=== PATIENT | female | born 1960 | race Caucasian/White ===

== ENCOUNTER 2018-10-03 13:36 | Emergency (ER) | payer OTHER ==
[~2018-10-03] VITALS: Ht 162.6 cm; Wt 86.2 kg
[~2018-10-03 13:36] MED LIST: ACYCLOVIR IV; ASPI81CH PO; ATOR10 PO; CIPR250 PO; CLOP75 PO; Cipro500 MG PO; Diovan40 MG PO; ESCI10 PO; FAMO20 PO; GLIP2.5ER PO; LEVO750 PO; LISI20 PO; METO25ER PO; MYCO250 PO; Macrodantin100 MG PO; PRED5 PO; Prednisone20 MG PO; Pyridium100 MG PO; TACR1 PO
== END 2018-10-03 14:20 | disposition home or self-care (01) ==
LOC: ER 13:36
DX: M25.571 Pain in right ankle and joints of right foot (principal); I25.2 Old myocardial infarction; E11.9 Type 2 diabetes mellitus without complications; I10 Essential (primary) hypertension; Z88.2 Allergy status to sulfonamides; Z91.040 Latex allergy status; Z88.8 Allergy status to other drugs, medicaments and biological substances; Z79.899 Other long term (current) drug therapy; Z79.52 Long term (current) use of systemic steroids; Z79.82 Long term (current) use of aspirin
CPT/HCPCS: 99282

== ENCOUNTER → 2019-01-09 | Outpatient (CLI) | payer OTHER ==
[2019-01-09 10:35] LABS: BASOPHILS ABSOLUTE AUTO 0.04 K/mm3 (0.00-0.23); BASOPHILS PERCENT AUTO 0 % (0-2); EOSINOPHILS ABSOLUTE AUTO 0.21 K/mm3 (0.00-0.68); EOSINOPHILS PERCENT AUTO 2 % (0-6); Hematocrit 36.5 % (33.0-51.0); Hemoglobin 11.5 g/dL (11.5-16.0); IMMATURE GRAN ABSOLUTE AUTO 0.02 K/mm3 (0.00-0.10); IMMATURE GRAN PERCENT AUTO 0 % (0-1); LYMPHOCYTES ABSOLUTE AUTO 2.49 K/mm3 (0.84-5.20); LYMPHOCYTES PERCENT AUTO 25 % (21-46); MONOCYTES ABSOLUTE AUTO 0.94 K/mm3 (0.16-1.47); MONOCYTES PERCENT AUTO 10 % (4-13); Mean Corpuscular HGB 27.9 pg (26.0-34.0); Mean Corpuscular HGB Conc 31.5 g/dL (31.5-36.5); Mean Corpuscular Volume 89 fL (80-100); Mean Platelet Volume 9.6 fL (9.1-12.4); NEUTROPHILS ABSOLUTE AUTO 6.23 K/mm3 (1.96-9.15); NEUTROPHILS PERCENT AUTO 63 % (41-73); Platelet Count 317 K/mm3 (150-400); RDW Coefficient Variation 12.7 % (11.7-14.2); RDW Standard Deviation 41.4 fL (35.1-46.3); Red Blood Cell Count 4.12 M/mm3 (3.80-5.20); White Blood Cell Count 9.93 K/mm3 (4.00-11.30)
[2019-01-09 10:49] LABS: Albumin, Blood 3.4 g/dL (3.4-5.0); Albumin/Globulin Ratio 0.8 (0.8-1.8); Bilirubin, Total 0.5 mg/dL (0.1-1.0); Bun/Creatinine Ratio 19.4 (12.0-20.0); Calcium, Blood 9.4 mg/dL (8.5-10.1); Creatinine, Blood 1.44 mg/dL (0.40-1.00); Potassium, Blood 4.1 mmol/L (3.5-5.5); Total Protein, Blood 7.4 g/dL (6.4-8.2)
== END | disposition home or self-care (01) ==
LOC: LAB 10:14 → LAB SHORT 10:14
PROVIDERS: Physician Assistant Surgical
DX: P59.9 Neonatal jaundice, unspecified (principal)
CPT/HCPCS: 80053; 85025

== ENCOUNTER 2019-06-11 07:58 | Inpatient (IN) | payer OTHER ==
[~2019-06-11] VITALS: Ht 162.6 cm; Wt 97.2 kg
[~2019-06-11 07:58] MED LIST changes: -ASPI81CH PO; +Aspirin EC81 MG PO; +Lopressor 25 mg25 MG PO; -METO25ER PO
[2019-06-11] MEDS ORDERED: GLIP2.5ER PO (08:27)
[2019-06-11 08:29] LABS: Source, Urine Clean Catch
[2019-06-11 08:34] LABS: Bilirubin, Urine Neg (Neg); Blood, Urine 3+ (Neg); Glucose Qualitative, Urine 1+ (Neg); Ketones, Urine Neg (Neg); Leukocyte Esterase, Urine 3+ (Neg); Nitrite, Urine Pos (Neg); Protein, Urine 3+ (Neg); Specific Gravity, Urine 1.015 (1.003-1.022); Urobilinogen, Urine NORM (Normal)
[2019-06-11 08:56] LABS: Appearance, Urine Cloudy (Clear); Color, Urine Yellow (P-Yellow)
[2019-06-11 08:57] LABS: White Blood Cells, Urine TNTC /hpf (0-5)
[2019-06-11 08:59] LABS: Bacteria Many /hpf; Squamous Epithelial Cells Few /hpf (Few); Transitional Epithelial Cells Rare /hpf (0-Rare)
[2019-06-11 09:26] LABS: BASOPHILS ABSOLUTE AUTO 0.01 K/mm3 (0.00-0.23); BASOPHILS PERCENT AUTO 0 % (0-2); EOSINOPHILS ABSOLUTE AUTO 0.01 K/mm3 (0.00-0.68); EOSINOPHILS PERCENT AUTO 0 % (0-6); Hematocrit 35.7 % (33.0-51.0); Hemoglobin 11.5 g/dL (11.5-16.0); IMMATURE GRAN ABSOLUTE AUTO 0.02 K/mm3 (0.00-0.10); IMMATURE GRAN PERCENT AUTO 0 % (0-1); LYMPHOCYTES ABSOLUTE AUTO 0.85 K/mm3 (0.84-5.20); LYMPHOCYTES PERCENT AUTO 11 % (21-46); MONOCYTES ABSOLUTE AUTO 0.92 K/mm3 (0.16-1.47); MONOCYTES PERCENT AUTO 12 % (4-13); Mean Corpuscular HGB 28.2 pg (26.0-34.0); Mean Corpuscular HGB Conc 32.2 g/dL (31.5-36.5); Mean Corpuscular Volume 88 fL (80-100); Mean Platelet Volume 9.5 fL (9.1-12.4); NEUTROPHILS ABSOLUTE AUTO 6.22 K/mm3 (1.96-9.15); NEUTROPHILS PERCENT AUTO 78 % (41-73); Platelet Count 228 K/mm3 (150-400); RDW Coefficient Variation 12.4 % (11.7-14.2); RDW Standard Deviation 39.8 fL (35.1-46.3); Red Blood Cell Count 4.08 M/mm3 (3.80-5.20); White Blood Cell Count 8.03 K/mm3 (4.00-11.30)
[2019-06-11 09:41] LABS: Albumin, Blood 2.8 g/dL (3.4-5.0); Albumin/Globulin Ratio 0.7 (0.8-1.8); Bilirubin, Total 0.4 mg/dL (0.1-1.0); Bun/Creatinine Ratio 21.1 (12.0-20.0); Calcium, Blood 8.6 mg/dL (8.5-10.1); Creatinine, Blood 1.14 mg/dL (0.40-1.00); Globulin, Blood 4.1 g/dL (2.2-4.0); Potassium, Blood 4.3 mmol/L (3.5-5.5); Total Protein, Blood 6.9 g/dL (6.4-8.2)
[2019-06-11 11:05] LABS: Adenovirus Not Detected (NOT DETECT); Bordetella pertussis Not Detected (NOT DETECT); Chlamydophila pneumoniae Not Detected (NOT DETECT); Coronavirus 229E Not Detected (NOT DETECT); Coronavirus HKU1 Not Detected (NOT DETECT); Coronavirus NL63 Not Detected (NOT DETECT); Coronavirus OC43 Not Detected (NOT DETECT); Human Metapneumovirus Not Detected (NOT DETECT); Human Rhinovirus/Enterovirus Not Detected (NOT DETECT); Influenza A Not Detected (NOT DETECT); Influenza A/2009-H1 Not Detected (NOT DETECT); Influenza A/H1 Not Detected (NOT DETECT); Influenza A/H3 Not Detected (NOT DETECT); Influenza B Not Detected (NOT DETECT); Mycoplasma pneumoniae Not Detected (NOT DETECT); Parainfluenza Virus 1 Not Detected (NOT DETECT); Parainfluenza Virus 2 Not Detected (NOT DETECT); Parainfluenza Virus 3 Not Detected (NOT DETECT); Parainfluenza Virus 4 Not Detected (NOT DETECT); Respiratory Syncytial Virus Not Detected (NOT DETECT)
[2019-06-11] MEDS ORDERED: LOSARTAN POTASS25 M2 PO (13:21)
--- NOTE | 2019-06-11 18:56 | NUR ---
SHIFT SUMMARY- PT NEW ADMIT THIS AFTERNOON. PT DENIES PAIN. DENIES N/V. DENIES SOB. RESP E/U ON RA. BLOOD SUGAR 325 THIS PM. MEDS GIVEN PER EMAR. INDEPENDENT IN THE ROOM. NO OTHER SIGNIFICANT CHANGES THIS SHIFT.
[2019-06-12 05:37] LABS: BASOPHILS ABSOLUTE AUTO 0.02 K/mm3 (0.00-0.23); BASOPHILS PERCENT AUTO 0 % (0-2); EOSINOPHILS ABSOLUTE AUTO 0.05 K/mm3 (0.00-0.68); EOSINOPHILS PERCENT AUTO 1 % (0-6); Hematocrit 37.1 % (33.0-51.0); IMMATURE GRAN ABSOLUTE AUTO 0.06 K/mm3 (0.00-0.10); IMMATURE GRAN PERCENT AUTO 1 % (0-1); LYMPHOCYTES PERCENT AUTO 21 % (21-46); MONOCYTES ABSOLUTE AUTO 0.75 K/mm3 (0.16-1.47); MONOCYTES PERCENT AUTO 12 % (4-13); Mean Corpuscular HGB 27.8 pg (26.0-34.0); Mean Corpuscular HGB Conc 32.3 g/dL (31.5-36.5); Mean Corpuscular Volume 86 fL (80-100); NEUTROPHILS ABSOLUTE AUTO 3.94 K/mm3 (1.96-9.15); NEUTROPHILS PERCENT AUTO 64 % (41-73); RDW Coefficient Variation 12.6 % (11.7-14.2); RDW Standard Deviation 39.1 fL (35.1-46.3); Red Blood Cell Count 4.31 M/mm3 (3.80-5.20); White Blood Cell Count 6.12 K/mm3 (4.00-11.30)
[2019-06-12 05:39] LABS: Mean Platelet Volume 10.4 fL (9.1-12.4); Platelet Count 200 K/mm3 (150-400)
[2019-06-12 06:01] LABS: Bun/Creatinine Ratio 19.2 (12.0-20.0); Calcium, Blood 8.8 mg/dL (8.5-10.1); Creatinine, Blood 1.04 mg/dL (0.40-1.00); Potassium, Blood 4.2 mmol/L (3.5-5.5)
--- NOTE | 2019-06-12 06:19 | NUR ---
SHIFT SUMMARY PT A/O INDEPENDENT. DENIED PAIN. NO SYMPTOMS FROM UTI. SHE WAS ABLE TO SLEEP T/O NIGHT. CALL LIGHT IN REACH.
--- NOTE | 2019-06-12 17:37 | NUR ---
SHIFT SUMMARY PT AXO, PLEASANT AND COOPERATIVE WITH CARE THOUGH ANXIOUS ABOUT MISSING WORK. PT'S EMPLOYER TO FAX PAPERWORK TO NURSE STATION VIA FAX TO EXCUSE HER ABSENCE FROM WORK. CHARGE NURSE NOTIFIED. VSS. NEW IV THIS SHIFT PATENT AND INFUSING AT THIS TIME. PT RESTING AT THIS TIME, BED IN LOW POSITION, CALL LIGHT WITHIN REACH. PT DENIES SOB AND NV. NO ACUTE CHANGES THIS SHIFT.
--- NOTE | 2019-06-13 06:30 | NUR ---
SHIFT SUMMARY PATIENT IS ALERT AND ORIENTED. UP IN ROOM INDEPENDENTLY. PATIENT REPORTS SHE IS EXPECTING PAPERWORK FROM [employer] TO BE FAXED OVER. NOTIFIED MORTGAGE LOAN PROCESSOR. NO PAPERS HAVE BEEN FAXED YET. PATIENT SLEPT WELL. VITALS STABLE. NO NEW CHANGES NOTED.
--- NOTE | 2019-06-13 17:21 | NUR ---
SHIFT SUMMARY NO ACUTE CHANGES. PATIENT DENIES PAIN, NAUSEA, AND SHORTNESS OF BREATH. PATIENT INDEPENDENT IN ROOM. DISCHARGE LIKELY TOMORROW. CALL LIGHT IN REACH, WILL CONTINUE TO MONITOR.
[2019-06-14 04:54] LABS: BASOPHILS ABSOLUTE AUTO 0.02 K/mm3 (0.00-0.23); BASOPHILS PERCENT AUTO 0 % (0-2); EOSINOPHILS ABSOLUTE AUTO 0.14 K/mm3 (0.00-0.68); EOSINOPHILS PERCENT AUTO 2 % (0-6); Hematocrit 36.5 % (33.0-51.0); Hemoglobin 11.5 g/dL (11.5-16.0); IMMATURE GRAN ABSOLUTE AUTO 0.01 K/mm3 (0.00-0.10); IMMATURE GRAN PERCENT AUTO 0 % (0-1); LYMPHOCYTES ABSOLUTE AUTO 2.26 K/mm3 (0.84-5.20); LYMPHOCYTES PERCENT AUTO 32 % (21-46); MONOCYTES ABSOLUTE AUTO 0.66 K/mm3 (0.16-1.47); MONOCYTES PERCENT AUTO 9 % (4-13); Mean Corpuscular HGB 27.7 pg (26.0-34.0); Mean Corpuscular HGB Conc 31.5 g/dL (31.5-36.5); Mean Corpuscular Volume 88 fL (80-100); Mean Platelet Volume 9.4 fL (9.1-12.4); NEUTROPHILS ABSOLUTE AUTO 4.03 K/mm3 (1.96-9.15); NEUTROPHILS PERCENT AUTO 57 % (41-73); Platelet Count 292 K/mm3 (150-400); RDW Coefficient Variation 12.6 % (11.7-14.2); RDW Standard Deviation 40.5 fL (35.1-46.3); Red Blood Cell Count 4.15 M/mm3 (3.80-5.20); White Blood Cell Count 7.12 K/mm3 (4.00-11.30)
[2019-06-14 05:19] LABS: Bun/Creatinine Ratio 27.9 (12.0-20.0); Calcium, Blood 9.1 mg/dL (8.5-10.1); Creatinine, Blood 1.22 mg/dL (0.40-1.00); Potassium, Blood 4.7 mmol/L (3.5-5.5)
--- NOTE | 2019-06-14 05:54 | NUR ---
SHIFT SUMMARY PATIENT IS ALERT AND ORIENTED. ON ROOM AIR. SLEPT WELL THROUGHOUT THE NIGHT. UP IN ROOM INDEPENDENTLY. NO NEW CHANGES. VITALS STABLE.
[2019-06-14] MEDS ORDERED: CLOT10 MT (11:55)
[2019-06-14] MEDS ORDERED: DOXY100 PO (11:56)
--- NOTE | 2019-06-14 12:31 | NUR ---
DISCHARGE DISCHARGE MEDICATIONS AND INSTRUCTIONS EXPLAINED TO PATIENT AND PATIENT'S DAUGHTER. THEY STATED UNDERSTANDING. IV REMOVED WITHOUT DIFFICULTY. BELONGINGS WITH PATIENT. PATIENT AMBULATED TO PRIVATE VEHICLE WITH DAUGHTER.
== END 2019-06-14 12:22 | disposition home or self-care (01) | DRG 690 ==
LOC: ER 07:58 → ERHOLD 10:41 → MEDS 14:23 → ENPENDDIS 06-14 11:41 → MEDS 06-14 12:22
PROVIDERS: Emergency Medicine; Hospitalist; ADMIT Internal Medicine
DX: N39.0 Urinary tract infection, site not specified (principal); Z94.0 Kidney transplant status; B96.20 Unspecified Escherichia coli [E. coli] as the cause of diseases classified elsewhere; Z16.12 Extended spectrum beta lactamase (ESBL) resistance; N18.2 Chronic kidney disease, stage 2 (mild); E11.22 Type 2 diabetes mellitus with diabetic chronic kidney disease; I12.9 Hypertensive chronic kidney disease with stage 1 through stage 4 chronic kidney disease, or unspecified chronic kidney disease; M32.9 Systemic lupus erythematosus, unspecified; E06.3 Autoimmune thyroiditis; D89.9 Disorder involving the immune mechanism, unspecified; I25.2 Old myocardial infarction; Z88.2 Allergy status to sulfonamides; Z91.040 Latex allergy status; Z79.84 Long term (current) use of oral hypoglycemic drugs; Z79.82 Long term (current) use of aspirin; Z79.899 Other long term (current) drug therapy
CPT/HCPCS: 0099U; 36415; 71046; 80048; 80053; 81001; 82947; 83605; 85025; 87040; 87077; 87086; 87186; 93005; 93010; 96361; 96365; 96375; 99285-25; A9270; J1650; J2185; J2543; J7030; J7050; J7120; J7507; J7512; J7517

== ENCOUNTER 2019-07-22 11:59 | Inpatient (IN) | payer OTHER ==
[~2019-07-22] VITALS: Ht 162.6 cm; Wt 99.6 kg
[~2019-07-22 11:59] MED LIST changes: +CLOT10 MT; +DOXY100 PO; +LOSARTAN POTASS25 M2 PO
[2019-07-22 12:23] LABS: BASOPHILS ABSOLUTE AUTO 0.02 K/mm3 (0.00-0.23); BASOPHILS PERCENT AUTO 0 % (0-2); EOSINOPHILS ABSOLUTE AUTO 0.01 K/mm3 (0.00-0.68); EOSINOPHILS PERCENT AUTO 0 % (0-6); Hematocrit 37.2 % (33.0-51.0); Hemoglobin 11.9 g/dL (11.5-16.0); IMMATURE GRAN ABSOLUTE AUTO 0.06 K/mm3 (0.00-0.10); IMMATURE GRAN PERCENT AUTO 0 % (0-1); LYMPHOCYTES ABSOLUTE AUTO 1.13 K/mm3 (0.84-5.20); LYMPHOCYTES PERCENT AUTO 7 % (21-46); MONOCYTES ABSOLUTE AUTO 1.71 K/mm3 (0.16-1.47); MONOCYTES PERCENT AUTO 11 % (4-13); Mean Corpuscular HGB 28.5 pg (26.0-34.0); Mean Corpuscular Volume 89 fL (80-100); Mean Platelet Volume 9.7 fL (9.1-12.4); NEUTROPHILS ABSOLUTE AUTO 12.51 K/mm3 (1.96-9.15); NEUTROPHILS PERCENT AUTO 81 % (41-73); Platelet Count 282 K/mm3 (150-400); RDW Coefficient Variation 12.6 % (11.7-14.2); RDW Standard Deviation 41.1 fL (35.1-46.3); Red Blood Cell Count 4.18 M/mm3 (3.80-5.20); White Blood Cell Count 15.44 K/mm3 (4.00-11.30)
[2019-07-22 12:28] LABS: Source, Urine Clean Catch
[2019-07-22 12:33] LABS: Appearance, Urine Cloudy (Clear); Bilirubin, Urine Neg (Neg); Blood, Urine 4+ (Neg); Color, Urine Yellow (P-Yellow); Glucose Qualitative, Urine 1+ (Neg); Ketones, Urine Neg (Neg); Leukocyte Esterase, Urine 3+ (Neg); Nitrite, Urine Pos (Neg); Protein, Urine 3+ (Neg); Specific Gravity, Urine 1.015 (1.003-1.022); Urobilinogen, Urine NORM (Normal)
[2019-07-22 12:39] LABS: Albumin, Blood 2.8 g/dL (3.4-5.0); Albumin/Globulin Ratio 0.6 (0.8-1.8); Bilirubin, Total 0.6 mg/dL (0.1-1.0); Bun/Creatinine Ratio 21.1 (12.0-20.0); Calcium, Blood 8.8 mg/dL (8.5-10.1); Creatinine, Blood 1.33 mg/dL (0.40-1.00); Globulin, Blood 4.4 g/dL (2.2-4.0); Potassium, Blood 4.1 mmol/L (3.5-5.5); Total Protein, Blood 7.2 g/dL (6.4-8.2)
[2019-07-22 13:30] LABS: White Blood Cells, Urine 50-100 /hpf (0-5)
[2019-07-22 13:32] LABS: Bacteria Many /hpf; Squamous Epithelial Cells Mod /hpf (Few); Transitional Epithelial Cells Few /hpf ({null, 0-Rare})
--- NOTE | 2019-07-22 19:27 | NUR ---
END OF SHIFT. PT ARRIVED TO PCU LATE IN AFTERNOON FROM ER. SHE IS AO X 4 ON ARRIVAL. IV FLUIDS INFUSING AT SEPSIS PROTOCOL RATE. COMES TO SEE PATIENT AND NEWE ORDERS RECEIVED FOR ULTRASOUND. PT IS CURRENTLY RESTING COMFORTABLY LIGHTS LOW. BREATHING EVEN AND UNLABORED. HAS HAD NO EPISODES OF N/V/D SINCE ARRIVAL TO UNIT. PER REPORT PT HAD 3 DAYS OF N/V/D PRIOR TO COMING TO ER. SHE RECEIVED ONE LITER LR IN ER AND MEDICATION FOR HER HEADACHE. PT IS A SBA TO THE BATHROOM AND IS COOPERATIVE WITH CARE. USING CALL LIGHT APPROPRIATELY.
[2019-07-23 03:59] LABS: BASOPHILS ABSOLUTE AUTO 0.01 K/mm3 (0.00-0.23); BASOPHILS PERCENT AUTO 0 % (0-2); EOSINOPHILS ABSOLUTE AUTO 0.01 K/mm3 (0.00-0.68); EOSINOPHILS PERCENT AUTO 0 % (0-6); Hemoglobin 9.6 g/dL (11.5-16.0); IMMATURE GRAN ABSOLUTE AUTO 0.03 K/mm3 (0.00-0.10); IMMATURE GRAN PERCENT AUTO 0 % (0-1); LYMPHOCYTES ABSOLUTE AUTO 0.91 K/mm3 (0.84-5.20); LYMPHOCYTES PERCENT AUTO 8 % (21-46); MONOCYTES ABSOLUTE AUTO 1.39 K/mm3 (0.16-1.47); MONOCYTES PERCENT AUTO 13 % (4-13); Mean Corpuscular HGB 28.9 pg (26.0-34.0); Mean Corpuscular Volume 90 fL (80-100); Mean Platelet Volume 9.9 fL (9.1-12.4); NEUTROPHILS ABSOLUTE AUTO 8.43 K/mm3 (1.96-9.15); NEUTROPHILS PERCENT AUTO 78 % (41-73); Platelet Count 221 K/mm3 (150-400); RDW Coefficient Variation 12.8 % (11.7-14.2); RDW Standard Deviation 42.3 fL (35.1-46.3); Red Blood Cell Count 3.32 M/mm3 (3.80-5.20); White Blood Cell Count 10.78 K/mm3 (4.00-11.30)
[2019-07-23 04:20] LABS: Magnesium, Blood 1.3 mg/dL (1.6-2.4)
[2019-07-23 04:21] LABS: Albumin, Blood 2.1 g/dL (3.4-5.0); Albumin/Globulin Ratio 0.6 (0.8-1.8); Bilirubin, Total 0.5 mg/dL (0.1-1.0); Bun/Creatinine Ratio 15.8 (12.0-20.0); Calcium, Blood 7.9 mg/dL (8.5-10.1); Creatinine, Blood 1.33 mg/dL (0.40-1.00); Globulin, Blood 3.5 g/dL (2.2-4.0); Phosphorus, Blood 2.6 mg/dL (2.5-4.9); Potassium, Blood 3.8 mmol/L (3.5-5.5); Total Protein, Blood 5.6 g/dL (6.4-8.2)
--- NOTE | 2019-07-23 05:50 | NUR ---
END OF SHIFT SUMMARY PT HAS BEEN ALERT AND ORIENTED T/O SHIFT. PLEASANT. VSS. PT HAS HAD MADE MULTIPLE TRIPS TO BATHRROM OR [facility] TO VOID. BEGINNING OF SHIFT, WHILE RECEIVING SEPSIS FLUID BOLUS, PT WAS INCONTINENT IN BRIEFS DUE TO INABILITY TO GET TO BATHRROM QUICK ENOUGH. BRIEFS WERE FULLY SOAKED BOTH TIMES. PT HAS HAD A LOW GRADE FEVER OFF AND ON T/O THE NIGHT. ALTERNATING WITH BLANKETS FOR PT. PT STATES THAT SHE IS FEELING BETTER THAN AT THE BEGINNING OF SHIFT. USES CALL LIGHT APPROPRIATELY. WILL CONTINUE TO MONITOR PT UNTIL SHIFT CHANGE.
--- NOTE | 2019-07-23 07:20 | NUR ---
ASSUMED CARE: PT SITTING UPRIGHT AT SIDE OF BED, TALKING TO STAFF, INDEPENDENT IN ROOM. NO ACUTE NEEDS OR CONCERNS NOTED
--- NOTE | 2019-07-23 09:57 | NUR ---
ISTRATE AWARE THAT PT HAS ELEVATED TEMP THIS AM. PT MED NO TELE STATUS NOW. PT AWARE
--- NOTE | 2019-07-23 19:19 | NUR ---
SHIFT SUMMARY: PT MEDICAL STATUS, RESTING QUIETLY T/O SHIFT. TEMP NORMALIZED BY END OF SHIFT. NO ACUTE NEEDS OR CONCERNS.
--- NOTE | 2019-07-24 05:34 | NUR ---
END OF SHIFT SUMMARY NO ACUTE CHANGES THIS SHIFT. VSS. PT STATES FEELING STRONGER THIS SHIFT THAN LAST. PT AFEBRILE FOR ENTIREITY OF SHIFT. HAS VOIDED MULTIPLE TIMES. UNABLE TO OBTAQIN URINE OR STOOL SAMPLE DUE TO PT'S INABILITY TO NOT VOID/HAVE BM AT THE SAME TIME. WILL CONTINUE TO TRY AND OBTAIN THIS. PT HAS REQUIRED LITTLE FROM STAFF. HAS BEEN RESTING IN ROOM QUIETLY. USES CALL LIGHT APPROPRIATELY. CURRENTLY, LAB UNABLE TO PULL BLOOD FROM PT AND HAVE BEEN UNSUCCESFUL MULTIPLE ATTEMPTS. OTHERWISE, WILL CONTINUE TO MONITOPR PT UNTIL SHIFT CHANGE.
[2019-07-24 06:03] LABS: Albumin, Blood 2.1 g/dL (3.4-5.0); Anion Gap 8 mmol/L (6-16); Blood Urea Nitrogen 23 mg/dL (8-24); Bun/Creatinine Ratio 18.7 (12.0-20.0); CO2, Blood 20 mmol/L (21-32); Calcium, Blood 8.2 mg/dL (8.5-10.1); Chloride, Blood 109 mmol/L (98-108); Creatinine, Blood 1.23 mg/dL (0.40-1.00); Glomerular Filtration Rate 48 (60-); Glucose, Blood 147 mg/dL (70-99); Phosphorus, Blood 1.8 mg/dL (2.5-4.9); Potassium, Blood 3.8 mmol/L (3.5-5.5); Sodium, Blood 137 mmol/L (136-145)
[2019-07-24 06:55] LABS: BASOPHILS ABSOLUTE AUTO 0.02 K/mm3 (0.00-0.23); BASOPHILS PERCENT AUTO 0 % (0-2); EOSINOPHILS ABSOLUTE AUTO 0.08 K/mm3 (0.00-0.68); EOSINOPHILS PERCENT AUTO 1 % (0-6); Hematocrit 32.3 % (33.0-51.0); Hemoglobin 10.3 g/dL (11.5-16.0); IMMATURE GRAN ABSOLUTE AUTO 0.02 K/mm3 (0.00-0.10); IMMATURE GRAN PERCENT AUTO 0 % (0-1); LYMPHOCYTES ABSOLUTE AUTO 1.45 K/mm3 (0.84-5.20); LYMPHOCYTES PERCENT AUTO 18 % (21-46); MONOCYTES ABSOLUTE AUTO 0.77 K/mm3 (0.16-1.47); MONOCYTES PERCENT AUTO 9 % (4-13); Mean Corpuscular HGB 28.7 pg (26.0-34.0); Mean Corpuscular HGB Conc 31.9 g/dL (31.5-36.5); Mean Corpuscular Volume 90 fL (80-100); Mean Platelet Volume 9.8 fL (9.1-12.4); NEUTROPHILS ABSOLUTE AUTO 5.82 K/mm3 (1.96-9.15); NEUTROPHILS PERCENT AUTO 71 % (41-73); Platelet Count 237 K/mm3 (150-400); RDW Standard Deviation 42.6 fL (35.1-46.3); Red Blood Cell Count 3.59 M/mm3 (3.80-5.20); White Blood Cell Count 8.16 K/mm3 (4.00-11.30)
--- NOTE | 2019-07-24 07:25 | NUR ---
ASSUMED CARE: PT RESTING QUIETLY IN BED. CALL TO MULTIPLE NURSES TO ATTEMPT POWER GLIDE FOR LABS. AWAITING THEIR AVAILABILITY. NO ACUTE NEEDS OR CONCERNS AT THIS TIME.
[2019-07-24] MEDS ORDERED: ACET325 PO (11:34)
[2019-07-24] MEDS ORDERED: NITR100CA PO (11:35)
[2019-07-24] MEDS ORDERED: HUMALOG KW200 UNIT/1 (11:35)
[2019-07-24] MEDS ORDERED: DIGESTIVE PROB250 MG PO (11:36)
[2019-07-24] MEDS ORDERED: ONDA4ODT MM (11:36)
--- NOTE | 2019-07-24 13:25 | NUR ---
DIETARY HAD AN EXTENSIVE CONVERSATION WITH PT REGARDING RENAL AND DIABETIC DIETS. DISCUSSED WITH PT THE USE OF AN INSULIN PEN AND HAD HER DEMONSTRATE AND REPEAT BACK. IV'S DC'D WNL. DR MIMS STATED, AND THIS WAS RELAYED TO PT, THAT DR CASTILLO WOULD DETERMINE IF SHE NEEDED A CONSULT FOR DR COX AN OUTPT. INSTRUCTED PT TO FOLLOW UP WITH DR CASTILLO AND THAT DISCHARGE PLANNING WAS WORKING ON GETTING PT A PCP. AMBULATORY AND DECLINED WHEEL CHAIR. DECLINED OTHER NEEDS OR CONCERNS.
--- NOTE | 2019-07-24 13:35 | NUR ---
PT AMBULATED SELF OUT FOR DISCHARGE. DECLINED THE NEED OF A WHEELCHAIR.
[2019-07-25 16:07] LABS: CMV QUANT DNA PCR (PLASMA) Negative (Negative)
== END 2019-07-24 13:27 | disposition home or self-care (01) | DRG 871 ==
LOC: ER 11:59 → PCU 15:07
PROVIDERS: Emergency Medicine; Internal Medicine Nephrology; ADMIT Family Medicine
DX: A41.51 Sepsis due to Escherichia coli [E. coli] (principal); N18.6 End stage renal disease; N39.0 Urinary tract infection, site not specified; E87.1 Hypo-osmolality and hyponatremia; Z94.0 Kidney transplant status; E87.2 Acidosis; N17.9 Acute kidney failure, unspecified; N25.81 Secondary hyperparathyroidism of renal origin; I12.0 Hypertensive chronic kidney disease with stage 5 chronic kidney disease or end stage renal disease; F41.8 Other specified anxiety disorders; E78.5 Hyperlipidemia, unspecified; E11.22 Type 2 diabetes mellitus with diabetic chronic kidney disease; M32.9 Systemic lupus erythematosus, unspecified; E86.9 Volume depletion, unspecified; D63.1 Anemia in chronic kidney disease; E83.39 Other disorders of phosphorus metabolism; D89.9 Disorder involving the immune mechanism, unspecified; E66.9 Obesity, unspecified; Z68.32 Body mass index [BMI] 32.0-32.9, adult; Z91.040 Latex allergy status; Z88.2 Allergy status to sulfonamides; Z79.82 Long term (current) use of aspirin; Z79.52 Long term (current) use of systemic steroids; Z79.899 Other long term (current) drug therapy
CPT/HCPCS: 36415; 71046; 76770; 80053; 80069; 80197; 81001; 82947; 83605; 83690; 83735; 84100; 85025; 86644; 86645; 87040; 87077; 87086; 87186; 87496; 87497; 96361; 96365; 96375; 99285-25; A9270; C1751; J0696; J0881; J1650; J2185; J2405; J3475; J7030; J7060; J7120; J7507; J7512; J7517

== ENCOUNTER → 2021-06-06 | Outpatient (CLI) | payer OTHER ==
[~2021-06-06] MED LIST changes: +ACET325 PO; +DIGESTIVE PROB250 MG PO; +HUMALOG KW200 UNIT/1; +NITR100CA PO; +ONDA4ODT MM
== END | disposition home or self-care (01) ==
LOC: LAB SHORT 12:00 → LAB 12:00
DX: N39.0 Urinary tract infection, site not specified (principal)
CPT/HCPCS: 87086; 87147

== ENCOUNTER → 2022-05-12 | Outpatient (CLI) | payer SELFPAY ==
[~2022-05-12] MED LIST changes: +Amoxicillin500 MG PO; +INSULIN GL100 UNIT/2 SC
== END | disposition home or self-care (01) ==
LOC: LAB SHORT 12:00 → LAB 12:00
DX: N39.0 Urinary tract infection, site not specified (principal)
CPT/HCPCS: 87086; 87147

== ENCOUNTER 2022-05-19 15:39 | Observation (INO) | payer OTHER ==
[~2022-05-19] VITALS: Ht 162.6 cm; Wt 81.7 kg
[~2022-05-19 15:39] MED LIST changes: -Amoxicillin500 MG PO; -INSULIN GL100 UNIT/2 SC
[2022-05-19 17:04] LABS: BASOPHILS ABSOLUTE AUTO 0.03 K/mm3 (0.00-0.23); BASOPHILS PERCENT AUTO 0 % (0-2); EOSINOPHILS ABSOLUTE AUTO 0.03 K/mm3 (0.00-0.68); EOSINOPHILS PERCENT AUTO 0 % (0-6); Hematocrit 38.9 % (33.0-51.0); Hemoglobin 12.8 g/dL (11.5-16.0); IMMATURE GRAN ABSOLUTE AUTO 0.09 K/mm3 (0.00-0.10); IMMATURE GRAN PERCENT AUTO 1 % (0-1); LYMPHOCYTES ABSOLUTE AUTO 0.89 K/mm3 (0.84-5.20); LYMPHOCYTES PERCENT AUTO 8 % (21-46); MONOCYTES ABSOLUTE AUTO 0.43 K/mm3 (0.16-1.47); MONOCYTES PERCENT AUTO 4 % (4-13); Mean Corpuscular HGB 28.3 pg (26.0-34.0); Mean Corpuscular HGB Conc 32.9 g/dL (31.5-36.5); Mean Corpuscular Volume 86 fL (80-100); Mean Platelet Volume 9.6 fL (9.1-12.4); NEUTROPHILS ABSOLUTE AUTO 10.23 K/mm3 (1.96-9.15); NEUTROPHILS PERCENT AUTO 87 % (41-73); Platelet Count 402 K/mm3 (150-400); RDW Coefficient Variation 12.5 % (11.7-14.2); Red Blood Cell Count 4.53 M/mm3 (3.80-5.20)
[2022-05-19 17:25] LABS: Ethanol (Alcohol), Blood, Med <3 mg/dL
[2022-05-19 17:29] LABS: Alanine Aminotransfer (ALT/SGP 19 U/L (12-78); Albumin, Blood 2.6 g/dL (3.4-5.0); Albumin/Globulin Ratio 0.6 (0.8-1.8); Alk Phos 185 U/L (50-136); Anion Gap 8 mmol/L (6-16); Aspartate Aminotrans (AST/SGOT 9 U/L (12-37); Bilirubin, Total 0.3 mg/dL (0.1-1.0); Blood Urea Nitrogen 28 mg/dL (8-24); CO2, Blood 22 mmol/L (21-32); Calcium, Blood 9.3 mg/dL (8.5-10.1); Chloride, Blood 94 mmol/L (98-108); Creatinine, Blood 1.22 mg/dL (0.40-1.00); Globulin, Blood 4.3 g/dL (2.2-4.0); Glomerular Filtration Rate 51 (60-); Glucose, Blood 870 mg/dL (70-99); Potassium, Blood 4.3 mmol/L (3.5-5.5); Sodium, Blood 124 mmol/L (136-145); Total Protein, Blood 6.9 g/dL (6.4-8.2)
[2022-05-19 18:08] LABS: Base Excess Venous -5.3 mmol/L; Bicarbonate Venous 20.1 mmol/L (24.0-30.0); PCO2 Venous 43.7 mmHg (38-42); pH Blood Venous 7.29 (7.34-7.37)
[2022-05-19 18:42] LABS: U Amphetamine Screen Not Detected; U Barbituate Screen Not Detected; U Benzodiazapine Screen Not Detected; U Buprenorphine Screen Not Detected; U Cannabinoids Screen Not Detected; U Cocaine Screen Not Detected; U Methadone Screen Not Detected; U Methamphetamine Screen Not Detected; U Opiates Screen Not Detected; U Oxycodone Screen Not Detected; U Phencyclidine Screen Not Detected; U Propoxyphene Screen Not Detected
[2022-05-19 21:04] LABS: Influenza A, PCR NEGATIVE (NEGATIVE); Influenza B, PCR NEGATIVE (NEGATIVE); Resp Syncytial Virus, PCR NEGATIVE (NEGATIVE); SARS-Cov-2 (COVID-19) PCR, MMC NEGATIVE (NEGATIVE)
[2022-05-19 21:20] LABS: Source, Urine Clean Catch
[2022-05-19 21:31] LABS: Appearance, Urine Clear (Clear); Bilirubin, Urine Neg (Neg); Blood, Urine 1+ (Neg); Glucose Qualitative, Urine 4+ (Neg); Ketones, Urine Neg (Neg); Leukocyte Esterase, Urine Neg (Neg); Nitrite, Urine Neg (Neg); Protein, Urine 3+ (Neg); Urobilinogen, Urine NORM (Normal)
[2022-05-19 21:42] LABS: Color, Urine Pale Yellow (P-Yellow)
[2022-05-19 21:43] LABS: Hyaline Casts 0-2 /lpf (0-2)
[2022-05-19 21:44] LABS: Bacteria Mod /hpf; Red Blood Cells, Urine 0-2 /hpf (0-2); Squamous Epithelial Cells Rare /hpf (Few); White Blood Cells, Urine 0-2 /hpf (0-5)
[2022-05-20 07:29] LABS: Bun/Creatinine Ratio 18.3 (12.0-20.0); Calcium, Blood 9.1 mg/dL (8.5-10.1); Creatinine, Blood 1.04 mg/dL (0.40-1.00); Potassium, Blood 3.8 mmol/L (3.5-5.5)
--- NOTE | 2022-05-20 14:25 | NUR ---
PT ADMITTED TO ROOM [id number], A/O X4, SLID SELF FROM STRETCHER TO BED WITHOUT DIFFICULTY. ORIENTED TO ROOM SET UP AND SAFETY. INSTRUCTED TO USE CALL LIGHT TO GET UP FOR NOW UNTIL SHE REGAINS STRENGTH.
[2022-05-20] MEDS ORDERED: Amoxicillin500 MG PO (18:25)
[2022-05-20] MEDS ORDERED: INSULIN GL100 UNIT/2 SC (18:28)
--- NOTE | 2022-05-20 18:50 | NUR ---
PT DISCHARGED 1829 WITH DC INSTRUCTIONS. RX FAXED TO [facility]. SUGARS STABLE. INSTRUCTIONS GIVEN ON DIABETIC TEACHING AND NEVER QUITTING INSULIN COLD . WALKED OUT WITH DAUGHTER, REFUSED WHEELCHAIR
== END 2022-05-20 18:47 | disposition home or self-care (01) ==
LOC: ER 15:39 → ERHOLD 15:40 → BC 15:40 → ERHOLD 15:40 → ER 15:40 → ERHOLD 15:41 → MEDS 05-20 13:52
PROVIDERS: Emergency Medicine; Physician Assistant; ADMIT Internal Medicine
DX: E11.65 Type 2 diabetes mellitus with hyperglycemia (principal); G92.8 Other toxic encephalopathy; N39.0 Urinary tract infection, site not specified; I12.9 Hypertensive chronic kidney disease with stage 1 through stage 4 chronic kidney disease, or unspecified chronic kidney disease; N18.9 Chronic kidney disease, unspecified; E11.22 Type 2 diabetes mellitus with diabetic chronic kidney disease; I25.2 Old myocardial infarction; E78.5 Hyperlipidemia, unspecified; Z88.2 Allergy status to sulfonamides; Z79.84 Long term (current) use of oral hypoglycemic drugs; Z79.899 Other long term (current) drug therapy
CPT/HCPCS: 0241U; 36415; 70450; 71045; 80048; 80053; 80197; 81001; 82140; 82803; 82947; 84484; 85025; 87086; 93005; 93010; 96361; 96372; 96374; 99285-25; A9270; G0378; G0480; J1650; J1815; J7030

== ENCOUNTER → 2022-07-23 | Outpatient (CLI) | payer OTHER ==
[~2022-07-23] MED LIST changes: +Amoxicillin500 MG PO; +INSULIN GL100 UNIT/2 SC
== END | disposition home or self-care (01) ==
LOC: LAB SHORT 11:50
DX: E11.65 Type 2 diabetes mellitus with hyperglycemia (principal); Z79.4 Long term (current) use of insulin
CPT/HCPCS: 82043

== ENCOUNTER 2022-09-09 10:51 | Emergency (ER) | payer OTHER ==
[~2022-09-09] VITALS: Ht 167.6 cm; Wt 65.8 kg
== END 2022-09-09 16:55 | disposition home or self-care (01) ==
LOC: ER 10:51
DX: T38.3X1A Poisoning by insulin and oral hypoglycemic [antidiabetic] drugs, accidental (unintentional), initial encounter (principal); I25.2 Old myocardial infarction; I12.9 Hypertensive chronic kidney disease with stage 1 through stage 4 chronic kidney disease, or unspecified chronic kidney disease; N18.9 Chronic kidney disease, unspecified; E11.22 Type 2 diabetes mellitus with diabetic chronic kidney disease; Z88.2 Allergy status to sulfonamides; Z91.040 Latex allergy status; Z79.52 Long term (current) use of systemic steroids; Z79.899 Other long term (current) drug therapy; Z79.4 Long term (current) use of insulin; Z94.0 Kidney transplant status
CPT/HCPCS: 36415; 82947; 96374; 96376; 99284-25

== ENCOUNTER → 2024-01-19 | Outpatient (CLI) | payer OTHER | END | disposition home or self-care (01) | LOC: LAB SHORT 16:50 → LAB 16:50 | DX: N39.0 Urinary tract infection, site not specified (principal) | CPT/HCPCS: 87077; 87086; 87186 ==

== ENCOUNTER 2024-09-28 13:20 | Emergency (ER) | payer OTHER ==
[~2024-09-28] VITALS: Ht 162.6 cm; Wt 86.2 kg
[2024-09-28 13:37] VITALS: BP 205/80
[2024-09-28] MEDS ORDERED: CELE100 PO (15:31)
[2024-09-28] MEDS ORDERED: ALLEGRA ALLERGY60 MG PO (15:31)
== END 2024-09-28 15:39 | disposition home or self-care (01) ==
LOC: ER 13:20
DX: H65.91 Unspecified nonsuppurative otitis media, right ear (principal); I25.2 Old myocardial infarction; E11.22 Type 2 diabetes mellitus with diabetic chronic kidney disease; I12.9 Hypertensive chronic kidney disease with stage 1 through stage 4 chronic kidney disease, or unspecified chronic kidney disease; N18.9 Chronic kidney disease, unspecified; Z79.52 Long term (current) use of systemic steroids; Z79.4 Long term (current) use of insulin; Z79.899 Other long term (current) drug therapy; Z88.2 Allergy status to sulfonamides; Z91.040 Latex allergy status
CPT/HCPCS: 70450; 99283-25

== ENCOUNTER 2025-02-02 10:23 | Inpatient (IN) | payer OTHER ==
[~2025-02-02] VITALS: Ht 162.6 cm; Wt 86.0 kg
[~2025-02-02 10:23] MED LIST changes: +ALLEGRA ALLERGY60 MG PO; +CELE100 PO; +LOSARTAN POTAS100 M1 PO; -LOSARTAN POTASS25 M2 PO
[2025-02-02] MEDS ORDERED: Metoprolol Tartrate 25 MG Tab PO ONE (11:05)
[2025-02-02 11:17] LABS: BASOPHILS PERCENT AUTO 0 % (0-2); EOSINOPHILS PERCENT AUTO 0 % (0-6); Hematocrit 25.7 % (33.0-51.0); Hemoglobin 8.3 g/dL (11.5-16.0); IMMATURE GRAN ABSOLUTE AUTO 0.02 K/mm3 (0.00-0.10); IMMATURE GRAN PERCENT AUTO 0 % (0-1); LYMPHOCYTES ABSOLUTE AUTO 0.61 K/mm3 (0.84-5.20); LYMPHOCYTES PERCENT AUTO 12 % (21-46); MONOCYTES ABSOLUTE AUTO 0.21 K/mm3 (0.16-1.47); MONOCYTES PERCENT AUTO 4 % (4-13); Mean Corpuscular HGB 30.1 pg (26.0-34.0); Mean Corpuscular HGB Conc 32.3 g/dL (31.5-36.5); Mean Corpuscular Volume 93 fL (80-100); NEUTROPHILS PERCENT AUTO 84 % (41-73); Platelet Count 350 K/mm3 (150-400); RDW Coefficient Variation 12.9 % (11.7-14.2); RDW Standard Deviation 43.9 fL (35.1-46.3); Red Blood Cell Count 2.76 M/mm3 (3.80-5.20); White Blood Cell Count 5.24 K/mm3 (4.00-11.30)
[2025-02-02 12:21] LABS: Albumin, Blood 2.2 g/dL (3.4-5.0); Albumin/Globulin Ratio 0.6 (0.8-1.8); Bilirubin, Total 0.2 mg/dL (0.1-1.0); Bun/Creatinine Ratio 16.1 (12.0-20.0); Calcium, Blood 7.9 mg/dL (8.5-10.1); Creatinine, Blood 4.1 mg/dL (0.40-1.00); Globulin, Blood 3.4 g/dL (2.2-4.0); Potassium, Blood 3.9 mmol/L (3.5-5.5); Total Protein, Blood 5.6 g/dL (6.4-8.2)
[2025-02-02 12:55] LABS: Source, Urine Clean Catch
[2025-02-02 13:00] LABS: Appearance, Urine Hazy (Clear); Bilirubin, Urine Neg (Neg); Blood, Urine 2+ (Neg); Color, Urine Yellow (P-Yellow); Glucose Qualitative, Urine 4+ (Neg); Ketones, Urine Neg (Neg); Leukocyte Esterase, Urine 1+ (Neg); Nitrite, Urine Neg (Neg); Protein, Urine 4+ (Neg); Urobilinogen, Urine NORM (Normal)
[2025-02-02 13:12] LABS: Squamous Epithelial Cells Mod /hpf (Few)
[2025-02-02 13:13] LABS: Granular Casts 0-2 /lpf (0); White Blood Cells, Urine 25-50 /hpf (0-5)
[2025-02-02 13:15] LABS: Bacteria Mod /hpf
[2025-02-02] MEDS ORDERED: HydrALAZINE HCl 20 MG / ML 1ML Vial IV PRN (14:10)
[2025-02-02] MEDS ORDERED: FLU VACC TS2024-25(6MOS UP)/PF 45 MCG/0.5 ML SYRINGE IM SCH (14:10)
[2025-02-02] MEDS ORDERED: Insulin Glargine-Yfgn 100 Unit/mL 3 ML SYR SC SCH (15:00)
[2025-02-02] MEDS ORDERED: Sodium Bicarb 8.4% Inj 100 MEQ in Sodium Chloride 0.45% 1,000 ML IV SCH (15:00)
[2025-02-02] MEDS ORDERED: Sodium Bicarb 8.4% Inj 150 MEQ in Dextrose 5% 1,000 ML IV SCH (15:00)
[2025-02-02 15:36] VITALS: BP 150/71
[2025-02-02] MEDS ORDERED: FAMO20 PO (15:42)
[2025-02-02] MEDS ORDERED: Insulin Human Lispro 100 Units/ML 3ML Syringe SC SCH (16:30)
[2025-02-02] MEDS ORDERED: Tacrolimus 1 MG Cap PO SCH (17:00)
[2025-02-02] MEDS ORDERED: PredniSONE 5 MG Tab PO SCH (17:00)
[2025-02-02] MEDS ORDERED: Mycophenolate Mofetil 250 MG Cap PO SCH (17:00)
--- NOTE | 2025-02-02 19:21 | NUR ---
ADMISSION NOTE/ SHIFT SUMMARY PATIENT ADMITTED TO ROOM 343 FROM EMERGENCY ROOM FOR CKD AND KIDNEY FAILURE. PATIENT A/OX4, INDEPENDENT, ABLE TO MAKE NEEDS KNOWN. SODIUM BICARB STARTED IN ED. SBP 150s UPON ADMISSION POST HYDRALAZINE ADMINISTRATION IN ED. DR. CASTILLO ASSESSED PATIENT THIS EVENING. NO OTHER CONCERNS AT THIS TIME.
[2025-02-02 20:33] VITALS: BP 177/76
[2025-02-02] MEDS ORDERED: Losartan Potassium 25 MG Tab PO SCH (21:00)
[2025-02-02] MEDS ORDERED: CloNIDine HCl 0.2 MG Tab PO SCH (21:00)
[2025-02-02] MEDS ORDERED: Metoprolol Tartrate 25 MG Tab PO SCH (21:00)
[2025-02-03 04:22] VITALS: BP 150/76
--- NOTE | 2025-02-03 04:37 | NUR ---
PT A&O X4, VS WNL, PO INTAKE WNL, OLIGURIC, REMAINS ON IVF, IVABX, BG 209, NO COVERAGE NEEDED. PT TOLD THAT DR TAMEZ WAS GOING TO PLACE HER ON A HIGHER DOSE OF STEROIDS, THIS HAS NOT HAPPENED OF THIS SHIFT. PT INDEPENDENT. DENIES PAIN. CONTINUE TO MONITOR RENAL PROGRESS.
[2025-02-03 05:23] LABS: Hematocrit 22.4 % (33.0-51.0); Hemoglobin 7.3 g/dL (11.5-16.0)
[2025-02-03 05:44] LABS: Anion Gap 13 mmol/L (3-11); Blood Urea Nitrogen 70 mg/dL (8-24); Bun/Creatinine Ratio 16.4 (12.0-20.0); CO2, Blood 22 mmol/L (21-32); Calcium, Blood 7.6 mg/dL (8.5-10.1); Chloride, Blood 108 mmol/L (98-108); Creatinine, Blood 4.28 mg/dL (0.40-1.00); Glomerular Filtration Rate 11 (60-); Glucose, Blood 124 mg/dL (70-99); Magnesium, Blood 1.3 mg/dL (1.6-2.4); Phosphorus, Blood 4.6 mg/dL (2.5-4.9); Potassium, Blood 3.5 mmol/L (3.5-5.5); Sodium, Blood 139 mmol/L (136-145)
[2025-02-03] MEDS ORDERED: Magnesium Sulf 2 GM/Water 50ML 50 ML IV ONE (07:05)
[2025-02-03 07:23] VITALS: BP 147/71
[2025-02-03] MEDS ORDERED: Insulin Human Lispro 100 Units/ML 3ML Syringe SC SCH (07:30)
[2025-02-03] MEDS ORDERED: NS 250 ML IV PRN (07:40)
[2025-02-03] MEDS ORDERED: NS 1,000 ML IV SCH (08:10)
[2025-02-03] MEDS ORDERED: MethylPREDNISolone Sod Succ 500 MG in Dextrose 5% 50 ML IV SCH (09:00)
[2025-02-03] MEDS ORDERED: Heparin Sodium 5000 Units/ML 1ML MDV SC SCH (09:00)
[2025-02-03] MEDS ORDERED: Azithromycin 250 MG Tab PO SCH (09:00)
[2025-02-03] MEDS ORDERED: Famotidine 20 MG Tab PO SCH (09:00)
[2025-02-03 15:36] VITALS: BP 130/66
[2025-02-03] MEDS ORDERED: Darbepoetin Alfa In Albumn Sol 40 MCG/0.4 ML SC SCH (16:00)
--- NOTE | 2025-02-03 19:10 | NUR ---
SHIFT SUMMARY PATIENT A/OX4, ABLE TO MAKE NEEDS KNOWN. PLEASANT AND COOPERATVIE WITH CARE. RENAL ULTRASOUND OBTAINED TODAY. IV FLUIDS CHANGED TO NORMAL SALINE PER DR. CASTILLO. PATIENT STARETD ON SOLUMEDROL AND MAGNESIUM REPLACED PER JAN. BLOOD SUGARS ELEVATED, NOW ON HIGH SLIDING SCALE INSULIN. 24 HOUR URINE COLLECTION STARTED THIS AM AT 1000. PATIENT REMAINS OLIGURIC AND HAS VOIDED TWICE THIS SHIFT. NO OTHER CONCERNS AT THIS TIME. REPORT GIVEN TO PATIENT SCHEDULING MANAGER RN.
[2025-02-03 19:15] VITALS: BP 150/80
[2025-02-04 03:35] VITALS: BP 160/91
--- NOTE | 2025-02-04 04:36 | NUR ---
PT A&OX4. B/P STILL REMAINS ELEVATED EVEN AFTER MULTIPLE MEDICATIONS. PT UP INDEPENDENTLY WALKING HEREDIA AND IN ROOM. PT VOIDS BEING SAVED FOR 24HR UA. URINE OUTPUT INCREASED THIS SHIFT. CBG 230 AT HS, NO COVERAGE NEEDED. REMAINS ON NS @ 75MLS/ HR. DENIES PAIN. AWAITING LABS THIS AM TO CHECK PROGRESS.
[2025-02-04 05:55] LABS: Alanine Aminotransfer (ALT/SGP 19 U/L (12-78); Albumin, Blood 2.1 g/dL (3.4-5.0); Albumin/Globulin Ratio 0.7 (0.8-1.8); Alk Phos 48 U/L (50-136); Aspartate Aminotrans (AST/SGOT 17 U/L (12-37); Bilirubin, Direct <0.1 mg/dL (0.0-0.3); Bilirubin, Indirect Unable to Calculate mg/dL (0.1-0.7); Bilirubin, Total 0.2 mg/dL (0.1-1.0); Total Protein, Blood 5.1 g/dL (6.4-8.2)
[2025-02-04 07:12] VITALS: BP 168/84
[2025-02-04 09:55] LABS: Bun/Creatinine Ratio 18.8 (12.0-20.0); Calcium, Blood 8.2 mg/dL (8.5-10.1); Creatinine, Blood 4.04 mg/dL (0.40-1.00); Potassium, Blood 3.5 mmol/L (3.5-5.5)
[2025-02-04] MEDS ORDERED: Sodium Bicarb 8.4% Inj 50 MEQ in NS 1,000 ML IV SCH (11:00)
[2025-02-04] MEDS ORDERED: Bumetanide 0.25 MG/ML 4ML ViaL IV ONE (11:35)
[2025-02-04 12:19] VITALS: BP 150/73
[2025-02-04] MEDS ORDERED: Insulin Glargine-Yfgn 100 Unit/mL 3 ML SYR SC STA (12:39)
[2025-02-04 15:44] LABS: CMV ANTIBODY IGG <0.20 U/mL (<=0.70); CMV ANTIBODY IGM <8.0 AU/mL (<=29.9)
[2025-02-04 16:20] VITALS: BP 179/85
[2025-02-04 16:57] LABS: TACROLIMUS BY HPLC-MS/MS 4.4 ng/mL
[2025-02-04 17:04] VITALS: BP 152/73
--- NOTE | 2025-02-04 19:53 | NUR ---
SHIFT SUMMARY PATIENT A/OX4, ABLE TO MAKE NEEDS KNOWN. PLEASANT AND COOPERATIVE WITH CARE. 24 HOUR URINE COLLECTED AND COMPLETED THIS AM. BLOOD SUGARS REMAIN ELEVATED, MD AWARE AND INSULIN ADJUSTED. PATIENT REFUSING CLONIDINE DUE TO SIDE EFFCTE OF METALLIC TASTE IN MOUTH. ORDER DISCONTINUIED AND LOSARTAN INCREASED. PATIENT ALSO REQUESTING ANXIETY MEDICATION AND STATED SHE PREVIOUSLY HAS TAKEN LEXAPRO 10 MG NIGHTLY. MD NOTIFIED AND NEW ORDER RECIEVED. PHARMACY INFORMED THIS RN THAT MEDICATION NOT INSTOCK AND EQUIVALANT ORDERED. NEW IV PLACED TO RIGHT FOREAMR AND PREVIOUS IV INFILTRATED. NO OTHER CONCERNS AT THIS TIME. REPORT GIVEN TO ORDER DETAILER RN.
[2025-02-04 20:49] VITALS: BP 167/78
[2025-02-04] MEDS ORDERED: Citalopram Hydrobromide 20 MG Tab PO SCH (21:00)
[2025-02-04] MEDS ORDERED: Losartan Potassium 50 MG Tab PO SCH ×2 (21:00)
--- NOTE | 2025-02-04 22:00 | NUR ---
PREVIOUS ASSESS FROM 1900 ON IV, ERROR PT HAD INFILTRATION OF LFA IV THIS AM, ARM IS SWOLLEN AND PAINFUL, ENCOURAGED TO ELEVATE ON PILLOW AT NIGHT.
[2025-02-05 02:56] VITALS: BP 160/70
--- NOTE | 2025-02-05 04:10 | NUR ---
PT A&O X4. VS WNL, PT INDEPENDENT. REMAINS ON IVF, AND VOIDS HAVE INCREASED IN VOLUMN. INCREASED ANXIETY/DEPRESSION STARTED ON CELEXA ON 02/04. CBG 237 NO COVERAGE REQUIRED. LEFT ARM SWOLLEN D/T IV INFILTRATION. WILL CONTINUE TO MONITOR RENAL FXN.
[2025-02-05 07:15] VITALS: BP 179/87
[2025-02-05 08:11] LABS: Albumin, Blood 1.9 g/dL (3.4-5.0); Anion Gap 14 mmol/L (3-11); Blood Urea Nitrogen 81 mg/dL (8-24); Bun/Creatinine Ratio 19.7 (12.0-20.0); CO2, Blood 20 mmol/L (21-32); Calcium, Blood 7.8 mg/dL (8.5-10.1); Chloride, Blood 109 mmol/L (98-108); Creatinine, Blood 4.11 mg/dL (0.40-1.00); Glomerular Filtration Rate 12 (60-); Glucose, Blood 120 mg/dL (70-99); Magnesium, Blood 1.6 mg/dL (1.6-2.4); Phosphorus, Blood 5.5 mg/dL (2.5-4.9); Sodium, Blood 140 mmol/L (136-145)
[2025-02-05] MEDS ORDERED: Potassium Chloride 20 MEQ TabCR PO ONE (08:35)
[2025-02-05] MEDS ORDERED: Insulin Glargine-Yfgn 100 Unit/mL 3 ML SYR SC SCH (09:00)
[2025-02-05 10:10] LABS: Hematocrit 25.6 % (33.0-51.0); Hemoglobin 8.3 g/dL (11.5-16.0); Mean Corpuscular HGB Conc 32.4 g/dL (31.5-36.5); Mean Corpuscular Volume 92 fL (80-100); Platelet Count 370 K/mm3 (150-400); RDW Coefficient Variation 12.6 % (11.7-14.2); RDW Standard Deviation 43.1 fL (35.1-46.3); Red Blood Cell Count 2.77 M/mm3 (3.80-5.20); White Blood Cell Count 11.02 K/mm3 (4.00-11.30)
[2025-02-05 10:33] LABS: International Normalized Ratio 1.01; Prothrombin Time Results 10.8 Sec (9.7-11.5)
[2025-02-05 11:34] LABS: BASOPHILS PERCENT MAN 0 % (0-2); EOSINOPHILS PERCENT MAN 0 % (0-6); LYMPHOCYTES ABSOLUTE MAN 0.11 K/mm3 (0.84-5.20); LYMPHOCYTES PERCENT MAN 1 % (21-46); MONOCYTES ABSOLUTE MAN 0.11 K/mm3 (0.16-1.47); MONOCYTES PERCENT MAN 1 % (4-13); NEUTROPHILS ABSOLUTE MAN 10.79 K/mm3 (1.96-9.15); SEG NEUTROPHILS PERCENT MAN 98 % (41-73); TOTAL CELLS COUNTED 100
[2025-02-05 16:11] VITALS: BP 205/84
[2025-02-05 16:18] VITALS: BP 197/79
[2025-02-05 17:00] VITALS: BP 173/86
--- NOTE | 2025-02-05 18:12 | NUR ---
SHIFT SUMMARY PT CONT LEVEL OF CARE A&OX [address] CASTILLO DISCUSSING CASE WITH [facility]. JONATHAN HAS ORDERD A RENAL BIOPSY TO BE DONE TOMORROW 02/06, PT IS TO BE NPO AT MIDNIGHT AND HEPRIN IS TO BE HELD STARTING AT 0600. PT NOTED TO HAVE ELEVATED BP DR FRANKS INCREASED PT METOPROLOL THIS SHIFT AND A PRN DOSE OF HYDRALAZINE WAS ADMISISTERED THIS SHIFT.
[2025-02-05 20:46] VITALS: BP 162/76
[2025-02-05] MEDS ORDERED: Metoprolol Tartrate 25 MG Tab PO SCH (21:00)
[2025-02-06] VITALS (7 sets, daily range): BP systolic 153–210; BP diastolic 69–92
[2025-02-06 01:07] LABS: TACROLIMUS BY HPLC-MS/MS 3.2 ng/mL
[2025-02-06 01:07] LABS: TACROLIMUS BY HPLC-MS/MS 4.7 ng/mL
--- NOTE | 2025-02-06 05:10 | NUR ---
SHIFT SUMMARY; PATIENT SLEPT IN LONG INTERVALS. DID HAVE TO GIVE 1 DOSE APRESOLINE FOR 179/78 BP. WAS 153/69 AFTR THAT. NS/75/HR. NPO AFTER MIDNIGHT FOR PROCEDURE.
[2025-02-06 05:25] LABS: Hemoglobin 8.1 g/dL (11.5-16.0)
[2025-02-06 05:34] LABS: ANTINUCLEAR AB (ANA),HEP-2,IGG <1:80 (<1:80)
[2025-02-06 06:02] LABS: Albumin, Blood 2.1 g/dL (3.4-5.0); Anion Gap 13 mmol/L (3-11); Blood Urea Nitrogen 75 mg/dL (8-24); Bun/Creatinine Ratio 18.7 (12.0-20.0); CO2, Blood 20 mmol/L (21-32); Calcium, Blood 7.7 mg/dL (8.5-10.1); Chloride, Blood 113 mmol/L (98-108); Creatinine, Blood 4.02 mg/dL (0.40-1.00); Glomerular Filtration Rate 12 (60-); Glucose, Blood 56 mg/dL (70-99); Magnesium, Blood 1.6 mg/dL (1.6-2.4); Phosphorus, Blood 4.2 mg/dL (2.5-4.9); Potassium, Blood 2.8 mmol/L (3.5-5.5); Sodium, Blood 143 mmol/L (136-145)
[2025-02-06] MEDS ORDERED: Potassium Chloride 20 MEQ TabCR PO ONE (06:25)
[2025-02-06] MEDS ORDERED: MethylPREDNISolone Sod Succ 500 MG in Dextrose 5% 50 ML IV ONE (06:55)
[2025-02-06] MEDS ORDERED: Dextrose 50% 50 ML Vial IV ONE (07:25)
--- NOTE | 2025-02-06 07:59 | NUR ---
UPON RECIEVING REPORT, THIS RN WAS NOTIFIED OF CBG OF 39. NOC RN CONTACTED MD, ORDERED DEXTROSE IV. MEDICATION ADMINISTERED. OCCUPATIONAL HEALTH SPECIALIST RECHECKED CBG 15 MINS LATER. CBG 170, DELEGATED CBG ASSESS IN 15 MINS AGAIN.
[2025-02-06] MEDS ORDERED: Potassium Chloride 20 MEQ TabCR PO SCH (08:00)
[2025-02-06] MEDS ORDERED: Mag Sulfate 1 GM/D5% 100ML 100 ML IV STA (08:05)
[2025-02-06 13:13] LABS: GBM, IGG MULTIPLEX BEAD ASSAY 0 AU/mL (0-19); MYELOPEROXIDASE (MPO) AB,IGG 0 AU/mL (0-19); SERINE PROTEINASE 3 PR3 AB,IGG 6 AU/mL (0-19)
[2025-02-06] MEDS ORDERED: CATAPRES0.1 MG PO (15:07)
[2025-02-06] MEDS ORDERED: FURO80 PO (15:08)
[2025-02-06] MEDS ORDERED: Fexofenadine HC60 MG PO (15:10)
[2025-02-06] MEDS ORDERED: MOUNJARO2.5 MG/0.5 SC (15:13)
--- NOTE | 2025-02-06 18:52 | NUR ---
SHIFT SUMMARY PT AOX4, COOPERATIVE, ABLE TO MAKE NEEDS KNOWN. PT IV WENT BAD THIS MORNING CAUSING IV MEDS TO BE LATE ALONG WITH SODIUM BICARB TO BE OFF SCHEDULE. PT HAS RENAL BIOPSY TODAY, AND WAS NPO PRIOR. BLOOD SUGAR CHECKS ACHS. PT IND TO BATHROOM. NO OTHER ACUTE EVENTS TOOK PLACE THIS SHIFT. BED IN LOWEST POSITION, CALL LIGHT WITHIN REACH.
[2025-02-07] VITALS (8 sets, daily range): BP systolic 165–196; BP diastolic 68–89
--- NOTE | 2025-02-07 04:19 | NUR ---
SHIFT SUMMARY PT ALERT ORIENTED X 4 ABLE TO VERBALIZE NEEDS CALLS APPROPRIATELY. BP HAS BEEN ELEVATED AT 202/81 AND 196/72. I GAVE HER A DOSE OF HYDRALAZINE X 1. HER HEPARIN WAS HELD LAST NIGHT DUE TO HAVING A BIOPSY YESTDAY. CONTINUES WITH EDEMA TO BLE. SHE C/O HER MOUTH BEING SORE. SHE STATED THAT THE DENTAL HYGIENIST SAID THAT SHE HAS THRUSH BUT THERE WAS NOTHING ORDERED FOR IT. I ASKED THE DR LAST NIGHT AND HE STATED THAT WHOEVER SAW IT NEEDS TO EXAMINE IT AND PUT IN A ORDER. SHE HAD A KIDNEY BIOPSY YESTERDAY AND WE ARE WAITING ON THE RESULTS. REMAINS ON ZITHROMAX ORDERED FOR URI. RESTING AT THIS TIME WITH CALL LIGHT IN REACH
[2025-02-07 05:40] LABS: Hematocrit 27.5 % (33.0-51.0); Hemoglobin 8.6 g/dL (11.5-16.0)
[2025-02-07 06:16] LABS: Albumin, Blood 2.2 g/dL (3.4-5.0); Anion Gap 13 mmol/L (3-11); Blood Urea Nitrogen 70 mg/dL (8-24); Bun/Creatinine Ratio 18.5 (12.0-20.0); CO2, Blood 19 mmol/L (21-32); Calcium, Blood 8.6 mg/dL (8.5-10.1); Chloride, Blood 118 mmol/L (98-108); Creatinine, Blood 3.79 mg/dL (0.40-1.00); Glomerular Filtration Rate 13 (60-); Glucose, Blood 201 mg/dL (70-99); Magnesium, Blood 1.8 mg/dL (1.6-2.4); Phosphorus, Blood 3.4 mg/dL (2.5-4.9); Potassium, Blood 3.7 mmol/L (3.5-5.5); Sodium, Blood 146 mmol/L (136-145)
[2025-02-07] MEDS ORDERED: MethylPREDNISolone Sod Succ 250 MG in Dextrose 5% 50 ML IV ONE (07:15)
[2025-02-07] MEDS ORDERED: Sodium Bicarb 8.4% Inj 75 MEQ in Sodium Chloride 0.45% 1,000 ML IV SCH (07:15)
[2025-02-07] MEDS ORDERED: HydrALAZINE HCl 25 MG Tab PO SCH (09:00)
[2025-02-07] MEDS ORDERED: Famotidine 20 MG Tab PO SCH (09:00)
[2025-02-07] MEDS ORDERED: Metoprolol Tartrate 50 MG Tab PO SCH (09:00)
[2025-02-07] MEDS ORDERED: Albuterol 2.5 MG/3 ML VIAL INH PRN (10:35)
[2025-02-07] MEDS ORDERED: Dextromethorphan Polistirix 30 MG/5 ML 5ML Oral Syringe PO PRN (10:35)
[2025-02-07] MEDS ORDERED: Nystatin 100,000 Unit/ML Susp 5 ML UDC MT SCH (13:00)
--- NOTE | 2025-02-07 17:56 | NUR ---
SHIFT SUMMARY PT AOX4, COOPERATIVE, ABLE TO MAKE NEEDS KNOWN. PT IS IND IN ROOM. RUNNING BICARB AT 75ML/HR CURRENTLY. TOLERATING PO AND IV MEDICATION APPROPRIATELY. PT HAS THRUSH, MEDICATING PER EMAR. BED IN LOWEST POSITION, CALL LIGHT WITHIN REACH.
[2025-02-07] MEDS ORDERED: Ondansetron 4 MG SoluTab SL PRN (18:35)
[2025-02-08 04:44] VITALS: BP 189/84
--- NOTE | 2025-02-08 05:07 | NUR ---
SHIFT SUMMARY: PT AOX4 IND IN THE ROOM. CALLS APPROPRIATELY AND ABLE TO MAKE NEEDS KNOWN. LITTLE PO INTAKE, DENIES NAUSEA, SOB, OR CP. PT PLEASANT AND COOPERATIVE IN CARE. TOLERATING MEDICATIONS WELL. BLOOD PRESSURE HAS BEEN RUNNING HIGH. MEDICATED PER EMR. NO ACUTE EVENTS OVERNIGHT. PT RESTING IN BED, BED IN LOWEST POSITION, CALL LIGHT IN REACH. CONTINUING CARE.
[2025-02-08 05:59] LABS: Hematocrit 24.5 % (33.0-51.0); Hemoglobin 7.9 g/dL (11.5-16.0)
[2025-02-08 06:22] LABS: Anion Gap 12 mmol/L (3-11); Blood Urea Nitrogen 70 mg/dL (8-24); Bun/Creatinine Ratio 17.2 (12.0-20.0); CO2, Blood 21 mmol/L (21-32); Calcium, Blood 8.2 mg/dL (8.5-10.1); Chloride, Blood 114 mmol/L (98-108); Creatinine, Blood 4.08 mg/dL (0.40-1.00); Glomerular Filtration Rate 12 (60-); Glucose, Blood 143 mg/dL (70-99); Magnesium, Blood 1.6 mg/dL (1.6-2.4); Phosphorus, Blood 4.4 mg/dL (2.5-4.9); Potassium, Blood 3.6 mmol/L (3.5-5.5); Sodium, Blood 143 mmol/L (136-145)
[2025-02-08 07:24] VITALS: BP 180/77
[2025-02-08] MEDS ORDERED: Mag Sulfate 1 GM/D5% 100ML 100 ML IV STA (08:18)
[2025-02-08 13:42] VITALS: BP 172/71
[2025-02-08 13:48] LABS: ALBUMIN %,URINE 46.7 %; ALPHA-1 %,URINE 10.2 %; ALPHA-2 %,URINE 13.2 %; BETA GLOBULIN %,URINE 17.1 %; GAMMA GLOBULIN %,URINE 12.8 %; HOURS COLLECTED 24 hr; TOTAL VOLUME 1200 mL
[2025-02-08] MEDS ORDERED: MethylPREDNISolone Sod Succ 250 MG in Dextrose 5% 50 ML IV ONE (14:15)
--- NOTE | 2025-02-08 15:29 | NUR ---
REVIEWED DEPUTY DIRECTOR OF NURSING DOCUMENTATION WITH STUDENT AND MADE EDITS TO ASSESSMENTS NEEDED APPROPRIATELY AND DISCUSSED/GAVE REASONING OR REASSESSED WITH STUDENT ON CHANGES.
[2025-02-08 16:02] VITALS: BP 176/77
--- NOTE | 2025-02-08 17:48 | NUR ---
SHIFT SUMMARY: PATIENT IS A&OX4, PLEASANT AND COOPERATIVE WITH CARE, INDEPENDENT, CALLS APPROPRIATELY, SHE IS GETTING IV STERIODS, AWAITING RENAL BIOSPY RESULTS. SHE IS IN BED, ALERT, CALL LIGHT WITHIN, NO SIGNS OR SYMPTOMS OF DISTRESS, PLAN OF CARE ONGOING.
--- NOTE | 2025-02-08 18:36 | NUR ---
L UPPER EXTREMITY MORE SWOLLEN THIS EVENING 4+ EDEMA FROM THE ELBOW DOWN. CALL MADE TO DR. FRANKS; SHE ADVISED TO ORDER AN ULTRASOUND. ULTRASOUND ORDERED.
[2025-02-08 19:32] VITALS: BP 172/75
[2025-02-09] VITALS (7 sets, daily range): BP systolic 154–185; BP diastolic 71–99
[2025-02-09 05:05] LABS: Hemoglobin 8.3 g/dL (11.5-16.0)
[2025-02-09 05:39] LABS: Albumin, Blood 2.1 g/dL (3.4-5.0); Anion Gap 12 mmol/L (3-11); Blood Urea Nitrogen 77 mg/dL (8-24); Bun/Creatinine Ratio 18.3 (12.0-20.0); CO2, Blood 21 mmol/L (21-32); Calcium, Blood 8.5 mg/dL (8.5-10.1); Chloride, Blood 113 mmol/L (98-108); Creatinine, Blood 4.21 mg/dL (0.40-1.00); Glomerular Filtration Rate 11 (60-); Glucose, Blood 187 mg/dL (70-99); Magnesium, Blood 1.9 mg/dL (1.6-2.4); Potassium, Blood 3.5 mmol/L (3.5-5.5); Sodium, Blood 142 mmol/L (136-145)
--- NOTE | 2025-02-09 05:51 | NUR ---
SHIFT SUMMARY NOC PT A/O X 4. PLEASANT AND COOPERATIVE WITH CARE. BP ELEVATED AND TREATED WITH SCHEDULED/PRN MEDICATIONS. DURING ASSESSMENT OF LUE PT REPORTS HAVING OLD FISTULA SITE ON LFA AND THEY REPORT THAT LUE IS ALWAYS MORE SWOLLEN THEN RUE. VENOUS ULTRASOUND PERFORMED ON LUE WITH 3+ EDEMA, AWAITING RESULTS OF IMAGING. PT REPORTS SWELLING HAS DECREASED FROM DAY SHIFT. PT HAS POWERGLIDE IN ALAN. PT REPORTS ANXIETY ABOUT PLAN GOING FORWARD. HS CBG 244 CNI. PT CURRENTLY RESTING WITH BED IN LOWEST POSITION, AND CALL LIGHT WITHIN REACH.
--- NOTE | 2025-02-09 07:46 | NUR ---
DR. CASTILLO CALLED AT 0730 REQUESTING AN ORDER TO BE PLACED FOR A CONSULT FOR DR. FERANNDEZ FOR A CVC PLACEMENT. ORDER PLACED.
[2025-02-09] MEDS ORDERED: LORazepam 2 MG/ML 1ML Injection IV ONE ×2 (10:50→14:05)
[2025-02-09] MEDS ORDERED: NS 500 ML IV ONE (14:06)
[2025-02-09] MEDS ORDERED: FentaNYL Citrate 50 MCG/ML 2 ML Injection ONE ×2 (14:08→17:14)
[2025-02-09] MEDS ORDERED: Midazolam HCl 1MG / ML 2ML Vial ONE ×2 (14:08→17:13)
[2025-02-09] MEDS ORDERED: NS 1,000 ML IV ONE ×2 (14:09→17:14)
--- NOTE | 2025-02-09 17:14 | NUR ---
SHIFT SUMMARY: NO EVENTS OR CHANGES WITH THE PATIENT THROUGHOUT THE SHIFT. SHE HAS BEEN NPO SINCE 729 THIS MORING AWAITING A PERMACATH FOR HEMODIALYSIS. THEY CAME AND GOT THE PATIENT FOR HER PROCEDURE AT 1705; PATIENT WAS WHEELED DOWN IN A WHEELCHAIR, NO SIGNS OR SYMPTOMS OF DISTRESS. PLAN IS FOR HER TO RECEIVE DIALYSIS TODAY. PLAN OF CARE ONGOING.
[2025-02-09] MEDS ORDERED: Heparin Sodium 10,000 Units/ML 1ML MDV ONE (17:32)
--- NOTE | 2025-02-09 18:03 | NUR ---
PATIENT RETURNED FROM THE UNIT FROM HER PERMACATH PLACEMENT; PATIENT ALERT, DOING WELL, VITALS ARE STABLE. SPOKE WITH DR. CASTILLO HE WOULD LIKE FOR THE PATIENT TO GET DIALYSIS IN THE MORNING, UNABLE TO GET A HOLD OF DIALYSIS. CALL MADE TO NURSING HISTOLOGIST TO HELP SET UP DIALYSIS IN THE MORNING.
[2025-02-10] VITALS (18 sets, daily range): BP systolic 140–198; BP diastolic 57–96
[2025-02-10 05:37] LABS: Hematocrit 26.9 % (33.0-51.0); Hemoglobin 8.3 g/dL (11.5-16.0)
[2025-02-10 06:07] LABS: Anion Gap 11 mmol/L (3-11); Blood Urea Nitrogen 81 mg/dL (8-24); CO2, Blood 20 mmol/L (21-32); Chloride, Blood 116 mmol/L (98-108); Creatinine, Blood 4.51 mg/dL (0.40-1.00); Glomerular Filtration Rate 10 (60-); Glucose, Blood 60 mg/dL (70-99); Magnesium, Blood 1.9 mg/dL (1.6-2.4); Phosphorus, Blood 5.2 mg/dL (2.5-4.9); Potassium, Blood 3.4 mmol/L (3.5-5.5); Sodium, Blood 144 mmol/L (136-145)
--- NOTE | 2025-02-10 06:53 | NUR ---
SHIFT SUMMARY: Pt is admitted for ARF on CKD4 and is a full code. Is alert and able to make needs known. ADLs have been IND. denies pain or discomfort when asked. Power glide to left upper patent with dressing that is CDI. permacath new placement area above insertion site opened during shift and has been oozing blood off and on during shift. Applied direct pressure to area off and on through shift and applied pressure dressings. aware.
[2025-02-10] MEDS ORDERED: Potassium Chloride 20 MEQ TabCR PO ONE ×2 (07:25→09:00)
[2025-02-10] MEDS ORDERED: Metoprolol Tartrate 50 MG Tab PO SCH (09:00)
[2025-02-10] MEDS ORDERED: HydrALAZINE HCl 50 MG Tab PO SCH (09:00)
--- NOTE | 2025-02-10 17:02 | NUR ---
SHIFT SUMMARY: PATIENT IS A&OX4/INDEPENDENT. SHE HAD HER FIRST RUN OF HEMODIALYSIS THIS MORNING; TOLERATED WELL GOT ABOUT A 0.5L OFF PER DIALYSIS NURSE. THE PLAN IS FOR THE PATIENT TO GET DIALYSIS AGAIN TOMORROW AND POSSIBLY THE NEXT DAY. PATIENT WAS CONSULTED BY DR. SHAFFER TODAY DUE TO FINDINGS OF HER RENAL BIOPSY. SHE IS ALSO NOW ON A FLUID RESTRICTION OF THIS AFTERNOON OF DR. CASTILLO. SHE IS IN BED, ALERT, CALL LIGHT WITHIN REACH, NO SIGNS OR SYMPTOMS OF DISTRESS. PLAN IS FOR PATIENT TO GET CHAIR TIME FOR DIALYSIS OUTPATIENT AND COORDINATE WITH DR. SHAFFER FOR TIMES FOR TREATMENT. PLAN OF CARE ONGOING.
[2025-02-11] VITALS (14 sets, daily range): BP systolic 134–195; BP diastolic 52–113
--- NOTE | 2025-02-11 03:17 | NUR ---
ASSOCIATE PROFESSOR OF ANTHROPOLOGY SUMMARY: PT A&O X4. MAKES NEEDS KNOWN. INDEPENDENT WITH CARES IN ROOM. NO S/S OF HYPOGLYCEMIA. HS SNACKS PROVIDED. NO ACUTE DISTRESS / EVENTS T/O SHIFT. CARES ONGOING ORDERED. CALL [facility] IN REACH. BED IN LOWEST POSITION.
[2025-02-11 06:04] LABS: Hematocrit 26.9 % (33.0-51.0); Hemoglobin 8.5 g/dL (11.5-16.0)
[2025-02-11] MEDS ORDERED: Dextrose 50% 50 ML Vial IV ONE (06:20)
--- NOTE | 2025-02-11 06:21 | NUR ---
AT APPROX 0555 MARY ANDERSON NOTIFIED THIS NURSE OF BLOOD SUGAR READING OF 34. PT SYMPTOMATIC WITH DECREASED LOC AND DIAPHORETIC. PT ROUSABLE AND ANSWERING QUESTIONS APPROPRIATELY. PT GIVEN APPLE JUICE X2, APPLE SAUCE WITH HONEY AND SUGAR, AND PEANUT BUTTER WITH HONEY AND ZI CRACKERS. RECHECK CBG AT 0608: 37. SYMPTOMS IMPROVING. MOHIT RANDHAWA RN AND DR. HEMPHILL NOTIFIED OF ABOVE INFO. NEW ORDER RECEIVED TO GIVE ONE AMPULE OF D50 X1, OK TO FOLLOW PHARMACY RECOMMENDATIONS. JOURNEYMAN PATTERNMAKER TO ADMINISTER D50 PER EMAR ORDER.
[2025-02-11 06:29] LABS: Magnesium, Blood 1.9 mg/dL (1.6-2.4)
[2025-02-11 06:30] LABS: Albumin, Blood 2.1 g/dL (3.4-5.0); Anion Gap 10 mmol/L (3-11); Blood Urea Nitrogen 46 mg/dL (8-24); Bun/Creatinine Ratio 13.6 (12.0-20.0); CO2, Blood 26 mmol/L (21-32); Calcium, Blood 7.7 mg/dL (8.5-10.1); Chloride, Blood 109 mmol/L (98-108); Creatinine, Blood 3.37 mg/dL (0.40-1.00); Glomerular Filtration Rate 15 (60-); Phosphorus, Blood 3.4 mg/dL (2.5-4.9); Potassium, Blood 2.9 mmol/L (3.5-5.5); Sodium, Blood 142 mmol/L (136-145)
[2025-02-11 06:31] LABS: Glucose, Blood 35 mg/dL (70-99)
[2025-02-11] MEDS ORDERED: MethylPREDNISolone Sod Succ 500 MG in Dextrose 5% 50 ML IV STA (07:21)
[2025-02-11] MEDS ORDERED: Potassium Chloride 10 Meq Tablet SA PO SCH (08:00)
[2025-02-11] MEDS ORDERED: Bumetanide 1 MG Tab PO SCH (09:00)
[2025-02-11] MEDS ORDERED: Insulin Glargine-Yfgn 100 Unit/mL 3 ML SYR SC SCH (09:00)
[2025-02-11 09:16] LABS: HEPATITIS B SURFACE ANTIBODY <3.10 IU/L
[2025-02-11 10:02] LABS: HBV CORE ANTIBODIES,TOTAL Negative (Negative)
[2025-02-11] MEDS ORDERED: Trimethoprim/Sulfamethoxazole DS Tab PO SCH (10:05)
[2025-02-11] MEDS ORDERED: Insulin Human Lispro 100 Units/ML 3ML Syringe SC SCH (11:30)
[2025-02-11 11:33] LABS: HEPATITIS B SURFACE ANTIGEN Negative (Negative)
[2025-02-11] MEDS ORDERED: HydrALAZINE HCl 50 MG Tab PO ONE (16:25)
--- NOTE | 2025-02-11 18:47 | NUR ---
ASSUMED CARE PT IS A.O X4 SEEMS DEPRESSED BECAUSE OF CURRENT SITUATION WITH HER KIDNEYS, PT HAS A FLAT AFFECT BUT IS COOPERATIVE WITH CARE AND IS PLEASENT. PT WAS UNABLE TO HAVE NEEDED PROCEDURE TODAY SO MDs HAVE PLANS TO DISCHARGE IN THE MORNING AFTER DIALYSIS TO CONTINUE TREATMENT OUT pt. PT HAD DIALYSIS TODAY 500MLS REMOVED AND THEN RETURNED TO ROOM. PT BLOOD SUGAR HAS BEEN WNL TODAY AND WAS NOT COVERED FOR INSULIN BUT MONITORED
[2025-02-11] MEDS ORDERED: Mycophenolate Mofetil 250 MG Cap PO SCH (21:00)
[2025-02-12] VITALS (14 sets, daily range): BP systolic 142–190; BP diastolic 61–107
--- NOTE | 2025-02-12 03:45 | NUR ---
DELI CUTTER SLICER SUMMARY: PT A&O X4. MAKES NEEDS KNOWN. NO ACUTE DISTRESS OR CHANGES T/O SHIFT. HS CB. SNACKS OFFERED. DENIES SYMPTOMS OF HYPOGLYCEMIA. PT IS INDEPENDENT WITH CARES IN ROOM. PLAN IS FOR PT TO D/C IN AM FOR OUTPT INFUSION AND THEN READMITTED FOR INPT HD WHILE AWITING OUTPT HD CHIAR TIME. CALL LIGHT IN REACH, BED IN LOWEST POSITION. CARES ONGOING ORDERED.
[2025-02-12] MEDS ORDERED: PredniSONE 20 MG Tab PO SCH (09:00)
[2025-02-12 10:15] LABS: Hematocrit 26.7 % (33.0-51.0); Hemoglobin 8.2 g/dL (11.5-16.0)
[2025-02-12 10:35] LABS: Albumin, Blood 1.8 g/dL (3.4-5.0); Anion Gap 7 mmol/L (3-11); Blood Urea Nitrogen 22 mg/dL (8-24); Bun/Creatinine Ratio 10.5 (12.0-20.0); CO2, Blood 34 mmol/L (21-32); Calcium, Blood 8.5 mg/dL (8.5-10.1); Chloride, Blood 103 mmol/L (98-108); Glomerular Filtration Rate 26 (60-); Glucose, Blood 140 mg/dL (70-99); Magnesium, Blood 1.7 mg/dL (1.6-2.4); Phosphorus, Blood 2.5 mg/dL (2.5-4.9); Potassium, Blood 3.9 mmol/L (3.5-5.5); Sodium, Blood 140 mmol/L (136-145)
[2025-02-12] MEDS ORDERED: Lopressor 50 mg50 MG PO (13:39)
[2025-02-12] MEDS ORDERED: PRED20 PO (13:40)
[2025-02-12] MEDS ORDERED: HYDRA50 PO (13:40)
[2025-02-12] MEDS ORDERED: NYSTATIN100000 U13 MT (13:41)
== END 2025-02-12 14:54 | disposition home or self-care (01) | DRG 673 ==
LOC: ER 10:23 → MEDS 10:24 → ERHOLD 10:24 → MEDS 15:22
PROVIDERS: Emergency Medicine; Hospitalist; Internal Medicine Nephrology; ADMIT Internal Medicine
PROC: 0TB03ZX Excision of Right Kidney, Percutaneous Approach, Diagnostic (ICD-10-PCS; 2025-02-06)
PROC: 0JH63XZ Insertion of Tunneled Vascular Access Device into Chest Subcutaneous Tissue and Fascia, Percutaneous Approach (ICD-10-PCS; principal; 2025-02-09)
PROC: 02HV33Z Insertion of Infusion Device into Superior Vena Cava, Percutaneous Approach (ICD-10-PCS; 2025-02-09)
PROC: 5A1D70Z Performance of Urinary Filtration, Intermittent, Less than 6 Hours Per Day (ICD-10-PCS; 2025-02-09)
DX: I12.0 Hypertensive chronic kidney disease with stage 5 chronic kidney disease or end stage renal disease (principal); N17.0 Acute kidney failure with tubular necrosis; D84.9 Immunodeficiency, unspecified; E87.1 Hypo-osmolality and hyponatremia; Z94.0 Kidney transplant status; E87.20 Acidosis, unspecified; E87.0 Hyperosmolality and hypernatremia; I82.612 Acute embolism and thrombosis of superficial veins of left upper extremity; N18.6 End stage renal disease; E11.22 Type 2 diabetes mellitus with diabetic chronic kidney disease; E83.42 Hypomagnesemia; D63.1 Anemia in chronic kidney disease; E87.6 Hypokalemia; M32.9 Systemic lupus erythematosus, unspecified; I16.0 Hypertensive urgency; E11.65 Type 2 diabetes mellitus with hyperglycemia; I25.10 Atherosclerotic heart disease of native coronary artery without angina pectoris; Z95.5 Presence of coronary angioplasty implant and graft; Z98.890 Other specified postprocedural states; Z79.4 Long term (current) use of insulin; Z91.040 Latex allergy status; Z88.2 Allergy status to sulfonamides; I25.2 Old myocardial infarction; Z79.84 Long term (current) use of oral hypoglycemic drugs; Z79.899 Other long term (current) drug therapy
CPT/HCPCS: 36415; 50200; 71045; 76776; 76937; 77012; 80048; 80053; 80069; 80076; 80197; 81001; 82550; 82947; 83516; 83735; 83880; 84156; 84166; 84550; 85007; 85014; 85018; 85025; 85027; 85610; 85730; 86039; 86334; 86335; 86644; 86645; 86704; 87086; 87340; 88329; 93971; 96365; 96366; 96367; 96374; 96375; 99152; 99285-25; A9270; C1750; C1769; C1894; G0378; J0360; J0881; J1644; J1815; J2060; J2250; J2919; J3010; J3475; J7030; J7040; J7070; J7507; J7512; J7517; J7799

== ENCOUNTER → 2025-03-07 | Outpatient (CLI) | payer OTHER ==
[~2025-03-07] MED LIST changes: +CATAPRES0.1 MG PO; +FURO80 PO; +Fexofenadine HC60 MG PO; +HYDRA50 PO; +Lopressor 50 mg50 MG PO; +MOUNJARO2.5 MG/0.5 SC; +NYSTATIN100000 U13 MT; +PRED20 PO
[2025-03-07 08:04] LABS: BASOPHILS ABSOLUTE AUTO 0.01 K/mm3 (0.00-0.23); BASOPHILS PERCENT AUTO 0 % (0-2); EOSINOPHILS PERCENT AUTO 0 % (0-6); Hematocrit 30.1 % (33.0-51.0); Hemoglobin 9.6 g/dL (11.5-16.0); IMMATURE GRAN PERCENT AUTO 1 % (0-1); LYMPHOCYTES ABSOLUTE AUTO 0.42 K/mm3 (0.84-5.20); LYMPHOCYTES PERCENT AUTO 5 % (21-46); MONOCYTES ABSOLUTE AUTO 0.16 K/mm3 (0.16-1.47); MONOCYTES PERCENT AUTO 2 % (4-13); Mean Corpuscular HGB 31.3 pg (26.0-34.0); Mean Corpuscular HGB Conc 31.9 g/dL (31.5-36.5); Mean Corpuscular Volume 98 fL (80-100); Mean Platelet Volume 10.1 fL (9.1-12.4); NEUTROPHILS ABSOLUTE AUTO 8.18 K/mm3 (1.96-9.15); NEUTROPHILS PERCENT AUTO 92 % (41-73); Platelet Count 195 K/mm3 (150-400); RDW Standard Deviation 46.4 fL (35.1-46.3); Red Blood Cell Count 3.07 M/mm3 (3.80-5.20); White Blood Cell Count 8.87 K/mm3 (4.00-11.30)
== END ==
LOC: LAB SHORT 07:40 → LAB 07:40
PROVIDERS: Internal Medicine Nephrology
DX: N18.6 End stage renal disease (principal)
CPT/HCPCS: 85025

== ENCOUNTER → 2025-03-14 | Outpatient (CLI) | payer OTHER | LOC: LAB SHORT 07:23 → LAB 07:23 | DX: N18.6 End stage renal disease (principal); D64.9 Anemia, unspecified | CPT/HCPCS: 85018 ==

== ENCOUNTER → 2025-03-15 | Outpatient (CLI) | payer OTHER | LOC: LAB 18:03 → LAB SHORT 18:03 | PROVIDERS: Internal Medicine Hematology & Oncology | DX: E61.1 Iron deficiency (principal) | CPT/HCPCS: 82728; 83540; 83550 ==

== ENCOUNTER → 2025-03-16 | Outpatient (CLI) | payer OTHER | LOC: LAB 08:20 → LAB SHORT 08:20 | DX: D64.9 Anemia, unspecified (principal); N18.6 End stage renal disease | CPT/HCPCS: 85018 ==

== ENCOUNTER 2025-04-15 16:17 | Emergency (ER) | payer OTHER ==
[~2025-04-15] VITALS: Ht 162.6 cm; Wt 81.7 kg
[~2025-04-15 16:17] MED LIST changes: -NYSTATIN100000 U13 MT
[2025-04-15] MEDS ORDERED: Acetaminophen 500 MG Tab PO ONE (16:55)
[2025-04-15 17:30] VITALS: BP 146/68
== END 2025-04-15 21:33 | disposition home or self-care (01) ==
LOC: ER 16:17
DX: S76.012A Strain of muscle, fascia and tendon of left hip, initial encounter (principal); S40.012A Contusion of left shoulder, initial encounter; I25.2 Old myocardial infarction; E11.22 Type 2 diabetes mellitus with diabetic chronic kidney disease; I12.9 Hypertensive chronic kidney disease with stage 1 through stage 4 chronic kidney disease, or unspecified chronic kidney disease; N18.4 Chronic kidney disease, stage 4 (severe); Z94.0 Kidney transplant status; Z95.5 Presence of coronary angioplasty implant and graft; Z88.2 Allergy status to sulfonamides; Z91.040 Latex allergy status; Z79.4 Long term (current) use of insulin; Z79.52 Long term (current) use of systemic steroids; Z79.899 Other long term (current) drug therapy; W01.0XXA Fall on same level from slipping, tripping and stumbling without subsequent striking against object, initial encounter
CPT/HCPCS: 73030; 73502; 93005; 93010; 99284-25; A9270

== ENCOUNTER 2025-04-24 14:11 | Inpatient (IN) | payer OTHER ==
[~2025-04-24] VITALS: Ht 162.6 cm; Wt 83.0 kg
[2025-04-24] MEDS ORDERED: NS 1,000 ML IV SCH (14:55)
[2025-04-24 15:20] LABS: BASOPHILS ABSOLUTE AUTO 0.06 K/mm3 (0.00-0.23); BASOPHILS PERCENT AUTO 0 % (0-2); EOSINOPHILS ABSOLUTE AUTO 0.01 K/mm3 (0.00-0.68); EOSINOPHILS PERCENT AUTO 0 % (0-6); Hematocrit 36.7 % (33.0-51.0); Hemoglobin 11.9 g/dL (11.5-16.0); IMMATURE GRAN ABSOLUTE AUTO 0.23 K/mm3 (0.00-0.10); IMMATURE GRAN PERCENT AUTO 1 % (0-1); LYMPHOCYTES PERCENT AUTO 7 % (21-46); MONOCYTES ABSOLUTE AUTO 0.89 K/mm3 (0.16-1.47); MONOCYTES PERCENT AUTO 5 % (4-13); Mean Corpuscular HGB 30.7 pg (26.0-34.0); Mean Corpuscular HGB Conc 32.4 g/dL (31.5-36.5); Mean Corpuscular Volume 95 fL (80-100); Mean Platelet Volume 9.3 fL (9.1-12.4); NEUTROPHILS ABSOLUTE AUTO 16.04 K/mm3 (1.96-9.15); NEUTROPHILS PERCENT AUTO 87 % (41-73); Platelet Count 452 K/mm3 (150-400); RDW Coefficient Variation 14.8 % (11.7-14.2); Red Blood Cell Count 3.88 M/mm3 (3.80-5.20); White Blood Cell Count 18.43 K/mm3 (4.00-11.30)
[2025-04-24 15:54] LABS: Influenza A, PCR NEGATIVE (NEGATIVE); Influenza B, PCR NEGATIVE (NEGATIVE); Resp Syncytial Virus, PCR NEGATIVE (NEGATIVE); SARS-Cov-2 (COVID-19) PCR, MMC NEGATIVE (NEGATIVE)
[2025-04-24 16:01] LABS: Albumin/Globulin Ratio 0.4 (0.8-1.8); Bilirubin, Total 0.5 mg/dL (0.1-1.0); Bun/Creatinine Ratio 5.9 (12.0-20.0); Calcium, Blood 8.5 mg/dL (8.5-10.1); Creatinine, Blood 6.07 mg/dL (0.40-1.00); Globulin, Blood 4.9 g/dL (2.2-4.0); Potassium, Blood 2.9 mmol/L (3.5-5.5); Total Protein, Blood 6.9 g/dL (6.4-8.2)
[2025-04-24] MEDS ORDERED: Cefepime HCl 1,000 MG in NS 100 ML IV ONE (16:40)
[2025-04-24] MEDS ORDERED: Vancomycin HCL 1,500 MG in NS 250 ML IV ONE (17:05)
[2025-04-24] MEDS ORDERED: Potassium Chloride 20 MEQ TabCR PO ONE (17:50)
[2025-04-24] MEDS ORDERED: SEVEC800 PO (19:14)
[2025-04-24] MEDS ORDERED: ESCI10 PO (19:16)
[2025-04-24] MEDS ORDERED: ZYRTEC10 M2 PO (19:17)
[2025-04-24] MEDS ORDERED: PROGRAF1 M1 PO (19:18)
[2025-04-24] MEDS ORDERED: ATOR10 PO (19:19)
[2025-04-24 19:29] VITALS: BP 132/86
[2025-04-24] MEDS ORDERED: NS 250 ML IV PRN (19:30)
[2025-04-24] MEDS ORDERED: NYST237S MT (19:38)
[2025-04-24] MEDS ORDERED: Heparin Sodium,Porcine 5,000 UNIT/0.5 ML SDV SC SCH (20:00)
[2025-04-24] MEDS ORDERED: Lactobacil 2-S.Thermo-Bifido 1 1 Cap PO SCH (21:00)
[2025-04-24] MEDS ORDERED: Prednisone10 MG PO (21:41)
[2025-04-24] MEDS ORDERED: CloNIDine 0.1 MG Tab PO SCH (22:00)
[2025-04-24] MEDS ORDERED: Tacrolimus 1 MG Cap PO SCH (22:00)
[2025-04-24] MEDS ORDERED: Trimethoprim/Sulfamethoxazole DS Tab PO ONE (22:25)
[2025-04-24 22:55] VITALS: BP 119/64
[2025-04-24 23:51] LABS: Adenovirus F 40/41 Not Detected (NOT DETECT); Astrovirus Not Detected (NOT DETECT); Campylobacter Sp Not Detected (NOT DETECT); Cryptosporidium Not Detected (NOT DETECT); Cyclospora Cayetanensis Not Detected (NOT DETECT); E. Coli O157 Not Detected (NOT DETECT); Entamoeba Histolytica Not Detected (NOT DETECT); Enteroaggregative E. coli-EAEC Not Detected (NOT DETECT); Enteropathogenic E. coli-EPEC Not Detected (NOT DETECT); Enterotoxigenic E. coli-ETEC Not Detected (NOT DETECT); Giardia Lamblia Not Detected (NOT DETECT); Norovirus GI/GII Not Detected (NOT DETECT); Plesiomonas Shigelloides Not Detected (NOT DETECT); Rotavirus A Not Detected (NOT DETECT); Salmonella Sp Not Detected (NOT DETECT); Sapovirus Not Detected (NOT DETECT); Shiga Toxin-prod E. coli-STEC Not Detected (NOT DETECT); Shigella/Enteroin E. coli-EIEC Not Detected (NOT DETECT); Vibrio Cholerae Not Detected (NOT DETECT); Vibrio Sp Not Detected (NOT DETECT); Yersinia Enterocolitica Not Detected (NOT DETECT)
[2025-04-25] VITALS (16 sets, daily range): BP systolic 97–162; BP diastolic 56–82
[2025-04-25] MEDS ORDERED: PredniSONE 5 MG Tab PO SCH (01:10)
[2025-04-25 05:14] LABS: Hematocrit 33.8 % (33.0-51.0); Hemoglobin 11.1 g/dL (11.5-16.0); Mean Corpuscular HGB 31.4 pg (26.0-34.0); Mean Corpuscular HGB Conc 32.8 g/dL (31.5-36.5); Mean Corpuscular Volume 96 fL (80-100); Mean Platelet Volume 9.3 fL (9.1-12.4); Platelet Count 330 K/mm3 (150-400); RDW Coefficient Variation 14.8 % (11.7-14.2); RDW Standard Deviation 52.6 fL (35.1-46.3); Red Blood Cell Count 3.53 M/mm3 (3.80-5.20); White Blood Cell Count 11.29 K/mm3 (4.00-11.30)
[2025-04-25 05:42] LABS: Albumin, Blood 1.7 g/dL (3.4-5.0); Anion Gap 9 mmol/L (3-11); Blood Urea Nitrogen 44 mg/dL (8-24); Bun/Creatinine Ratio 6.5 (12.0-20.0); CO2, Blood 28 mmol/L (21-32); Calcium, Blood 8.2 mg/dL (8.5-10.1); Chloride, Blood 93 mmol/L (98-108); Creatinine, Blood 6.79 mg/dL (0.40-1.00); Glomerular Filtration Rate 6 (60-); Glucose, Blood 104 mg/dL (70-99); Magnesium, Blood 2.2 mg/dL (1.6-2.4); Phosphorus, Blood 7.2 mg/dL (2.5-4.9); Potassium, Blood 3.3 mmol/L (3.5-5.5); Sodium, Blood 127 mmol/L (136-145); Vancomycin, Random 30.5 ug/mL
--- NOTE | 2025-04-25 06:04 | NUR ---
Shift Summary Pt admitted to this unit for sepsis r/t pneumonia. She is an ESRD Dialysis patient, her dialysis access in on her R upper chest. She has a hx of recent falls d/t weakness, bed alarm is on. She is AOx4. A GI panel was sent from ED d/t her have recent watery diahhrea, no bowel movements this shift. Pt is on 2L O2 NC and RA is her BL, she was desatting down to 86 in the ED on RA. She is on tele running NSR in the 80s, no events. Dr. Balderas saw her this AM and is awaiting chest CT, plans for dialysis today.
[2025-04-25] MEDS ORDERED: Potassium Chloride 20 MEQ TabCR PO ONE (06:10)
[2025-04-25] MEDS ORDERED: Furosemide 80 MG Tab PO SCH ×2 (06:15→09:00)
[2025-04-25] MEDS ORDERED: Sevelamer Carbonate 800 MG Tab PO SCH (08:30)
[2025-04-25] MEDS ORDERED: Enoxaparin 40 MG/0.4 ML SYR SC SCH (09:00)
[2025-04-25] MEDS ORDERED: Loratadine 10 MG Tab PO SCH (09:00)
[2025-04-25] MEDS ORDERED: Trimethoprim/Sulfamethoxazole DS Tab PO SCH (09:00)
[2025-04-25] MEDS ORDERED: Famotidine 20 MG Tab PO SCH (09:00)
[2025-04-25] MEDS ORDERED: Metoprolol Tartrate 50 MG Tab PO SCH (09:00)
[2025-04-25] MEDS ORDERED: Citalopram Hydrobromide 20 MG Tab PO SCH (09:00)
[2025-04-25] MEDS ORDERED: Losartan Potassium 50 MG Tab PO SCH (09:00)
[2025-04-25] MEDS ORDERED: Atorvastatin 10 MG Tab PO SCH (09:00)
[2025-04-25] MEDS ORDERED: Cefepime HCl 1,000 MG in NS 100 ML IV SCH (17:00)
--- NOTE | 2025-04-25 18:31 | NUR ---
PATIENT WENT TO DIALYSIS TODAY. SHE IS DOWN TO 1 LITER ON O2. SHE IS CURRENTLY SITTING UP IN BED EATING DINNER. CEFEPIME IS RUNNING IN THE IV. CALL LIGHT IS WITHIN REACH.
[2025-04-25] MEDS ORDERED: GuaiFENesin 600 MG TabCR PO SCH (21:00)
[2025-04-26 03:59] VITALS: BP 137/52
--- NOTE | 2025-04-26 04:02 | NUR ---
SHIFT SUMMARY PATIENT HAD NO ACUTE CHANGES. ALERT ORIENTED AND SBA TO BR. DENIES CHEST PAIN, SOB, AND N/V. VSS/AFEBRILE. ON 1 O2 NC AND RA BASELINE. TELE MONITOR NSR 78. DIALYSIS PORT R U CHEST. NON-PRODUCTIVE COUGH AND SCHEDULE HUMIBID GIVEN PER EMAR WITH GOOD EFFECT. CALL LIGHT IN REACH. BED IN LOWEST POSITION. WILL CONTINUE TO MONITOR UNTIL DAY SHIFT NURSE ASSUMES CARE.
[2025-04-26 05:16] LABS: Hematocrit 30.4 % (33.0-51.0); Hemoglobin 10.2 g/dL (11.5-16.0); Mean Corpuscular HGB 31.6 pg (26.0-34.0); Mean Corpuscular HGB Conc 33.6 g/dL (31.5-36.5); Mean Corpuscular Volume 94 fL (80-100); Mean Platelet Volume 9.4 fL (9.1-12.4); Platelet Count 325 K/mm3 (150-400); RDW Coefficient Variation 14.5 % (11.7-14.2); RDW Standard Deviation 49.7 fL (35.1-46.3); Red Blood Cell Count 3.23 M/mm3 (3.80-5.20); White Blood Cell Count 10.14 K/mm3 (4.00-11.30)
[2025-04-26 05:58] LABS: Albumin, Blood 1.6 g/dL (3.4-5.0); Anion Gap 11 mmol/L (3-11); Blood Urea Nitrogen 28 mg/dL (8-24); CO2, Blood 26 mmol/L (21-32); Calcium, Blood 7.9 mg/dL (8.5-10.1); Chloride, Blood 97 mmol/L (98-108); Creatinine, Blood 4.67 mg/dL (0.40-1.00); Glomerular Filtration Rate 10 (60-); Glucose, Blood 151 mg/dL (70-99); Potassium, Blood 3.8 mmol/L (3.5-5.5); Sodium, Blood 130 mmol/L (136-145); Vancomycin, Random 22.1 ug/mL
[2025-04-26 05:59] LABS: Phosphorus, Blood 3.9 mg/dL (2.5-4.9)
[2025-04-26 08:05] VITALS: BP 113/72
[2025-04-26 12:24] VITALS: BP 148/80
[2025-04-26] MEDS ORDERED: RENVELA800 MG PO (13:55)
[2025-04-26] MEDS ORDERED: NYSTATIN100000 U13 PO (13:58)
[2025-04-26 14:34] LABS: Adenovirus Not Detected (NOT DETECT); Bordetella pertussis Not Detected (NOT DETECT); Chlamydophila pneumoniae Not Detected (NOT DETECT); Coronavirus 229E Not Detected (NOT DETECT); Coronavirus HKU1 Not Detected (NOT DETECT); Coronavirus NL63 Not Detected (NOT DETECT); Coronavirus OC43 Not Detected (NOT DETECT); Human Metapneumovirus Not Detected (NOT DETECT); Human Rhinovirus/Enterovirus Not Detected (NOT DETECT); Influenza A/2009-H1 Not Detected (NOT DETECT); Influenza A/H1 Not Detected (NOT DETECT); Influenza A/H3 Not Detected (NOT DETECT); Influenza B Not Detected (NOT DETECT); Mycoplasma pneumoniae Not Detected (NOT DETECT); Parainfluenza Virus 1 Not Detected (NOT DETECT); Parainfluenza Virus 2 Not Detected (NOT DETECT); Parainfluenza Virus 3 Not Detected (NOT DETECT); Parainfluenza Virus 4 Not Detected (NOT DETECT); Respiratory Syncytial Virus Not Detected (NOT DETECT); SARS-Cov-2 (COVID-19), BioFire Not Detected (NOT DETECT)
[2025-04-26 16:42] VITALS: BP 135/72
--- NOTE | 2025-04-26 16:49 | NUR ---
Patient is lying in bed and alert. She tells me about her medical problems and the poor prognosis of her kidney. She also talks about her [employer]ism background and the hope and inspiration she gets from seeing the cross that hangs in her hospital room. The cross is often covered by the mounted computer so I brought her a Rosary, the instructions for how to pray the Rosary and a card with the cross on it and a scripture on the back. I provided therapeutic listening, encouragement and prayer. The patient responded well and showed signs of greater peace. Spiritual care will remain available.
[2025-04-26] MEDS ORDERED: Loperamide HCl 2 MG Cap PO PRN (17:05)
--- NOTE | 2025-04-26 17:32 | NUR ---
SHIFT SUMMARY NO ACUTE CHANGES, A/Ox4, ABLE TO MAKE NEEDS KNOWN, INDEPENDENT IN ROOM. ON RA THROUGHOUT SHIFT AND SATING ABOVE 92%. PT DENIES SOB. LUNG SOUNDS IMPROVED WITH DIMINISHED LOWER LOBES. PT DENIES PAIN. LOOSE STOOL x3, PT ON PROBIOTICS. IMODIUM ORDERED AND FIRST DOSE ADMINISTERED. TELE - SR @ 63 c 1ST DEGREE HB. PT CURRENTLY DANGLING AT BEDSIDE WITH CALL LIGHT WITHIN REACH.
[2025-04-26 20:39] VITALS: BP 147/80
[2025-04-27] VITALS (19 sets, daily range): BP systolic 98–183; BP diastolic 61–92
--- NOTE | 2025-04-27 04:05 | NUR ---
SHIFT SUMMARY PATIENT HAD NO ACUTE CHANGES. ALERT ORIENTED AND INDEPENDENT IN ROOM. ON ROOM AIR. DENIES CHEST PAIN, SOB, AND N/V. VSS/AFEBRILE. PIV INTACT. TELE MONITOR NSR 74 WITH 1ST DEGREE AVB. SLEPT MOST OF THE SHIFT. CALL LIGHT IN REACH. BED IN LOWEST POSITION. WILL CONTINUE TO MONITOR UNTIL DAY SHIFT NURSE ASSUMES CARE.
[2025-04-27 06:35] LABS: BASOPHILS ABSOLUTE AUTO 0.03 K/mm3 (0.00-0.23); BASOPHILS PERCENT AUTO 0 % (0-2); EOSINOPHILS ABSOLUTE AUTO 0.03 K/mm3 (0.00-0.68); EOSINOPHILS PERCENT AUTO 0 % (0-6); Hematocrit 31.8 % (33.0-51.0); Hemoglobin 10.4 g/dL (11.5-16.0); IMMATURE GRAN ABSOLUTE AUTO 0.05 K/mm3 (0.00-0.10); IMMATURE GRAN PERCENT AUTO 1 % (0-1); LYMPHOCYTES ABSOLUTE AUTO 1.02 K/mm3 (0.84-5.20); LYMPHOCYTES PERCENT AUTO 12 % (21-46); MONOCYTES PERCENT AUTO 8 % (4-13); Mean Corpuscular HGB Conc 32.7 g/dL (31.5-36.5); Mean Corpuscular Volume 95 fL (80-100); Mean Platelet Volume 9.7 fL (9.1-12.4); NEUTROPHILS ABSOLUTE AUTO 6.63 K/mm3 (1.96-9.15); NEUTROPHILS PERCENT AUTO 78 % (41-73); Platelet Count 323 K/mm3 (150-400); RDW Coefficient Variation 14.4 % (11.7-14.2); RDW Standard Deviation 49.7 fL (35.1-46.3); Red Blood Cell Count 3.35 M/mm3 (3.80-5.20); White Blood Cell Count 8.46 K/mm3 (4.00-11.30)
[2025-04-27 07:38] LABS: Albumin, Blood 1.6 g/dL (3.4-5.0); Anion Gap 11 mmol/L (3-11); Blood Urea Nitrogen 33 mg/dL (8-24); Bun/Creatinine Ratio 6.1 (12.0-20.0); CO2, Blood 26 mmol/L (21-32); Calcium, Blood 8.6 mg/dL (8.5-10.1); Chloride, Blood 98 mmol/L (98-108); Creatinine, Blood 5.41 mg/dL (0.40-1.00); Glomerular Filtration Rate 8 (60-); Glucose, Blood 180 mg/dL (70-99); Magnesium, Blood 2.1 mg/dL (1.6-2.4); Phosphorus, Blood 4.6 mg/dL (2.5-4.9); Potassium, Blood 4.1 mmol/L (3.5-5.5); Sodium, Blood 131 mmol/L (136-145); Vancomycin, Random 19.9 ug/mL
--- NOTE | 2025-04-27 12:03 | NUR ---
RETURNED FROM DIALYSIS, 0.5LITER OF FLUID TAKEN OFF.
[2025-04-27] MEDS ORDERED: Vancomycin HCL 750 MG in NS 250 ML IV ONE (13:00)
[2025-04-27] MEDS ORDERED: CATAPRES0.1 MG PO (13:59)
[2025-04-27] MEDS ORDERED: LevoFLOXacin 750 MG Tab PO ONE (14:00)
[2025-04-27] MEDS ORDERED: GUAI600T33 PO (14:03)
[2025-04-27] MEDS ORDERED: VISBIOME 112.51 EACH PO (14:03)
[2025-04-27] MEDS ORDERED: LEVFLO500 PO (14:05)
[2025-04-27] MEDS ORDERED: LOPE2C PO (14:08)
[2025-04-27] MEDS ORDERED: VANCOMYCIN HCL750 MG IV (14:11)
--- NOTE | 2025-04-27 16:35 | NUR ---
DISCHARGE PT AOX4, COOPERATIVE, ABLE TO MAKE NEEDS KNOWN. THIS IV DC'D BY THIS RN WITHOUT EVENTS. PT TRANSPORTED BY WHEELCHAIR OUT OF [facility] BY EXPLOSIVES OPERATOR. TELE DC'D BY EXPLOSIVES OPERATOR.
[2025-05-01] MEDS ORDERED: Misc. Injectable SC SCH (09:00)
== END 2025-04-27 16:50 | disposition home or self-care (01) | DRG 871 ==
LOC: ER 14:11 → MEDS 17:34
PROVIDERS: Internal Medicine; Internal Medicine Nephrology; Student in an Organized Health Care Education/Training Program; ADMIT Internal Medicine
PROC: 3E03329 Introduction of Other Anti-infective into Peripheral Vein, Percutaneous Approach (ICD-10-PCS; 2025-04-24)
PROC: 5A1D70Z Performance of Urinary Filtration, Intermittent, Less than 6 Hours Per Day (ICD-10-PCS; principal; 2025-04-25)
DX: A41.9 Sepsis, unspecified organism (principal); J18.9 Pneumonia, unspecified organism; N18.6 End stage renal disease; J96.01 Acute respiratory failure with hypoxia; E87.1 Hypo-osmolality and hyponatremia; D84.821 Immunodeficiency due to drugs; Z94.0 Kidney transplant status; R19.7 Diarrhea, unspecified; E87.6 Hypokalemia; E11.22 Type 2 diabetes mellitus with diabetic chronic kidney disease; I10 Essential (primary) hypertension; R60.0 Localized edema; E87.70 Fluid overload, unspecified; N05.7 Unspecified nephritic syndrome with diffuse crescentic glomerulonephritis; D63.1 Anemia in chronic kidney disease; M32.9 Systemic lupus erythematosus, unspecified; Z88.2 Allergy status to sulfonamides; Z91.040 Latex allergy status; Z79.624 Long term (current) use of inhibitors of nucleotide synthesis; Z79.621 Long term (current) use of calcineurin inhibitor; Z79.4 Long term (current) use of insulin; Z79.52 Long term (current) use of systemic steroids; I25.2 Old myocardial infarction; Z95.5 Presence of coronary angioplasty implant and graft; Z99.2 Dependence on renal dialysis
CPT/HCPCS: 0202U; 0241U; 36415; 71046; 71250; 80053; 80069; 80202; 82947; 83605; 83735; 84145; 84484; 85025; 85027; 87040; 87507; 93005; 93010; 96374; 99285-25; A9270; J0692; J1644; J3370; J7030; J7050; J7507; J7512

== ENCOUNTER 2025-11-22 10:21 | Observation (INO) | payer MEDICARE, OTHER ==
[~2025-11-22] VITALS: Ht 162.6 cm; Wt 78.5 kg
[~2025-11-22 10:21] MED LIST changes: +GUAI600T33 PO; +LEVFLO500 PO; +LOPE2C PO; +NYST237S MT; +NYSTATIN100000 U13 PO; +PROGRAF1 M1 PO; +Prednisone10 MG PO; +RENVELA800 MG PO; +SEVEC800 PO; +VANCOMYCIN HCL750 MG IV; +VISBIOME 112.51 EACH PO; +ZYRTEC10 M2 PO
[2025-11-22] MEDS ORDERED: FLU VACC TS2025-26(6MOS UP)/PF 45 MCG/0.5 ML SYRINGE IM SCH (15:05)
[2025-11-22 15:34] LABS: BASOPHILS ABSOLUTE AUTO 0.02 K/mm3 (0.00-0.23); BASOPHILS PERCENT AUTO 0 % (0-2); EOSINOPHILS ABSOLUTE AUTO 0.01 K/mm3 (0.00-0.68); EOSINOPHILS PERCENT AUTO 0 % (0-6); Hematocrit 32.4 % (33.0-51.0); Hemoglobin 10.5 g/dL (11.5-16.0); IMMATURE GRAN ABSOLUTE AUTO 0.06 K/mm3 (0.00-0.10); IMMATURE GRAN PERCENT AUTO 0 % (0-1); LYMPHOCYTES ABSOLUTE AUTO 1.28 K/mm3 (0.84-5.20); LYMPHOCYTES PERCENT AUTO 9 % (21-46); MONOCYTES ABSOLUTE AUTO 1.05 K/mm3 (0.16-1.47); MONOCYTES PERCENT AUTO 8 % (4-13); Mean Corpuscular HGB Conc 32.4 g/dL (31.5-36.5); Mean Corpuscular Volume 98 fL (80-100); NEUTROPHILS ABSOLUTE AUTO 11.52 K/mm3 (1.96-9.15); NEUTROPHILS PERCENT AUTO 83 % (41-73); NRBC ABSOLUTE 0.00 K/mm3 (0.00-0.02); NRBC Auto 0.0 /100 WBC (0.0-0.2); Platelet Count 321 K/mm3 (150-400); RDW Coefficient Variation 12.6 % (11.7-14.2); RDW Standard Deviation 45.1 fL (35.1-46.3)
[2025-11-22 15:43] LABS: Anion Gap 13.0 mmol/L (3-11); Blood Urea Nitrogen 48.0 mg/dL (8-24); CO2, Blood 26.0 mmol/L (21-32); Calcium, Blood 9.4 mg/dL (8.5-10.1); Chloride, Blood 92.0 mmol/L (98-108); Creatinine, Blood 5.49 mg/dL (0.40-1.00); Glucose, Blood 182.0 mg/dL (70-99); Potassium, Blood 3.9 mmol/L (3.5-5.5); Sodium, Blood 127.0 mmol/L (136-145)
[2025-11-22] MEDS ORDERED: Albuterol 2.5 MG/3 ML VIAL INH PRN (15:45)
[2025-11-22] MEDS ORDERED: Formoterol/Mometasone MDI 5/100 mcg 13 GM INH SCH (16:00)
[2025-11-22] MEDS ORDERED: Insulin Regular 100 UNIT/ML 10ML Vial SC SCH ×2 (16:30)
--- NOTE | 2025-11-22 16:44 | NUR ---
1641 GOT REPORT ON PATIENT COMING TO 327 FROM ED NURSE DENA.
[2025-11-22 17:01] VITALS: BP 143/72
[2025-11-22] MEDS ORDERED: MYCO250 PO (17:18)
[2025-11-22] MEDS ORDERED: HUMALOG KW100 UNIT/1 SC (17:23)
[2025-11-22] MEDS ORDERED: Pulmicort Fle180 MCG INH (17:26)
[2025-11-22] MEDS ORDERED: FLUT1DIS2 INH (17:27)
--- NOTE | 2025-11-22 18:31 | NUR ---
SHIFT SUMMARY PATIENT IS A&OX4, SHE IS PLEASANT AND COOPERATIVE WITH CARE. SHE IS IN ROOM AIR WITHOUT TELE. SHE IS USING THE CALL SYSTEM APPROPRIATELY AND IS ABLE TO MAKE NEEDS KNOWN. SHE IS CONTINENT AND INDEPENDENT. PLANS TO BE NPO AFTER MIDNIGHT FOR PROCEDURE TO REPAIR RIGHT UPPER CHEST DIALYSIS PORT. DR. FORD WAS CONSULTED BY THE ED UPON ARRIVAL TODAY. BED IS LOW AND LOCKED, CALL LIGHT IN REACH.
[2025-11-22 19:17] VITALS: BP 139/81
[2025-11-22] MEDS ORDERED: DEXTROMETHORPHAN/BENZOCAINE 1 EACH LOZENGE MT PRN (19:50)
[2025-11-22] MEDS ORDERED: Heparin Sodium,Porcine 5,000 UNIT/0.5 ML SDV SC SCH (21:00)
[2025-11-22 23:22] VITALS: BP 152/76
[2025-11-23] VITALS (14 sets, daily range): BP systolic 136–199; BP diastolic 75–111
--- NOTE | 2025-11-23 04:19 | NUR ---
SHIFT SUMMARY PATIENT HAD NO ACUTE CHANGES. ALERT ORIENTED AND INDEPENDENT IN ROOM. NPO TO HAVE PROCEDURE TODAY. REPORTED NON PRODUCTIVE COUGH WITH SORE THROAT. HOSPITALIST DR HEMPHILL ORDERED TESSALON 100 MG AND CEPACOL LOZENGERS WITH GOOD EFECT. DENIES CHEST PAIN, SOB AND N/V. VSS/AFEBRILE. CALL LIGHT IN REACH. BED IN LOWEST POSITION. WILL CONTINUE TO MONITOR UNTIL DAY SHIFT NURSE ASSUMES CARE.
[2025-11-23 07:21] LABS: Magnesium, Blood 2.4 mg/dL (1.6-2.4); Phosphorus, Blood 3.9 mg/dL (2.5-4.9)
[2025-11-23 08:35] LABS: Albumin, Blood 2.9 g/dL (3.4-5.0); Anion Gap 12 mmol/L (3-11); Blood Urea Nitrogen 61 mg/dL (8-24); CO2, Blood 28 mmol/L (21-32); Calcium, Blood 9.1 mg/dL (8.5-10.1); Chloride, Blood 92 mmol/L (98-108); Creatinine, Blood 6.12 mg/dL (0.40-1.00); Glucose, Blood 138 mg/dL (70-99); Phosphorus, Blood 4.1 mg/dL (2.5-4.9); Potassium, Blood 4.2 mmol/L (3.5-5.5); Sodium, Blood 128 mmol/L (136-145)
[2025-11-23] MEDS ORDERED: Insulin Glargine-Yfgn 100 Unit/mL 3 ML SYR SC SCH (09:00)
[2025-11-23] MEDS ORDERED: NS 250 ML IV ONE (10:31)
[2025-11-23] MEDS ORDERED: Heparin Sodium 1000 Units/ML 10ML MDV ONE (10:32)
[2025-11-23] MEDS ORDERED: NS 500 ML IV ONE (10:43)
[2025-11-23] MEDS ORDERED: Darbepoetin (Pharmacy Consult) SC SCH (10:50)
[2025-11-23] MEDS ORDERED: FentaNYL Citrate 50 MCG/ML 2 ML Injection ONE (11:20)
[2025-11-23] MEDS ORDERED: Midazolam HCl 1MG / ML 2ML Vial ONE (11:20)
[2025-11-23] MEDS ORDERED: CeFAZolin Sodium 2,000 MG VIAL ONE (11:25)
[2025-11-23] MEDS ORDERED: NS 50 ML IV ONE (11:26)
--- NOTE | 2025-11-23 18:16 | NUR ---
SHIFT SUMMARY/DISCHARGE PT AOX4, COOPERATIVE, ABLE TO MAKE NEEDS KNOWN. PT IS IND IN ROOM, ON ROOM AIR, TOLERATING MEDICATION. WAS NPO THIS AM FOR IR PROCEDURE FOR HD CHEST PORT. COMPLETED PROCEDURE, WENT DOWN TO HD, TOOK OFF 1LITER. PT OPTED TO BE DC'D TONIGHT. DECIDED NOT TO EAT DINNER WHEN OFFERED. DECIDED TO TAKE HOME MEDICATION WHEN ABLE TO. IV DC'D BY MONICA HA COMPLICATION. PT REQUESTED TO AMBULATE OUT, THIS RN "PREFERED SHE USE WC" WHICH SHE DID USE. [facility]AML[facility] TRANSPORTED PT DOWN TO CAR. ROOM STRIPPED. ALL BELONGINGS WENT WITH PT.
== END 2025-11-23 18:30 | disposition home or self-care (01) ==
LOC: ER 10:21 → MEDS 10:22
PROVIDERS: ADMIT Internal Medicine
DX: T82.898A Other specified complication of vascular prosthetic devices, implants and grafts, initial encounter (principal); I12.0 Hypertensive chronic kidney disease with stage 5 chronic kidney disease or end stage renal disease; N18.6 End stage renal disease; E11.22 Type 2 diabetes mellitus with diabetic chronic kidney disease; E87.1 Hypo-osmolality and hyponatremia; Z79.4 Long term (current) use of insulin; Z91.040 Latex allergy status; Z88.2 Allergy status to sulfonamides; Z99.2 Dependence on renal dialysis; Z94.0 Kidney transplant status
CPT/HCPCS: 36415; 80048; 80069; 82947; 83735; 84100; 85025; 94640; 94760; 96372; 99152; 99285; A9270; C1750; C1769; G0257; G0378; J0690; J1644; J1815; J2250; J3010; J7040; J7050; J7507; J7512; J7517